=== PATIENT | male | born 1965 | race Caucasian/White ===

== ENCOUNTER 2024-02-14 08:53 | Inpatient (IN) | payer BC, SELFPAY ==
[2024-02-14] VITALS (18 sets, daily range): BP systolic 99–173; BP diastolic 67–114; BMI 27.8; BMI 27.5
--- NOTE | 2024-02-14 06:57 | ED.GENMED ---
History of Present Illness
General
Chief Complaint: Chest Pain
Source: patient
Time Seen by Provider: 02/14/24 06:44
History of Present Illness
History of Present Illness:
58-year-old male presents to the emergency room complaining of chest pain. Patient states that he was awoken from sleep around 5 AM with pressure in his chest. He describes as a dull type of discomfort that almost felt like he needed to belch.
However it did not go away. The pain does not radiate. He denies shortness of breath or diaphoresis. Patient does have a history of type 2 diabetes. He has not taken any medication for this for the past 2 years. Denies smoking history.
Past History
Past History
ED Past Medical History: None
ED Past Surgical History: None
Social History
Tobacco: Non-smoker
Alcohol: Occasional
Personal:
Living: with family
Employment: Employed
Phy Exam
Physical Exam
Physical Exam:
General: Awake, Alert, Oriented X3. No acute distress.
Vitals: unremarkable
Head: Atraumatic
Eyes: Pupils equal, EOMI
Throat: Airway intact, no exudates
Neck: Trachea midline
Lungs: Clear and equal b/l
Heart: Regular rate, no murmurs
Abd: Soft, Nontender, No pulsatile mass
Neuro: Nonfocal
Skin: Warm, dry, no rash
Extremities: pulses equal b/l, no edema
Scores
Heart Score for Chest Pain Patients
STEMI patient?: Yes
Course
Orders/Labs/Results
Orders:
Orders
02/14/24 06:36
EKG [Electrocardiogram (*1)] Stat
Reason for Study: Chest Pain
02/14/24 06:37
EKG- Treatment ONCE
02/14/24 06:49
Cardiac Monitoring- Treatment ONCE
02/14/24 06:52
Basic Metabolic Panel Urgent
Complete Blood Count/With Diff Urgent
Troponin I Urgent
02/14/24 07:24
Midazolam HCl [Versed] 2 mg .ROUTE .STK-MED ONE
Verapamil Injectable [Isoptin/Verapamil Injection] 5 mg .ROUTE .STK-MED ONE
02/14/24 07:25
Fentanyl Citrate/Pf [Sublimaze] 100 mcg .ROUTE .STK-MED ONE
Heparin 10,000 units .ROUTE .STK-MED ONE
Heparin 1000 Units/500 ml [Heparin] 1,000 units in 500 ml .ROUTE .STK-MED
Heparin Sodium,Porcine/Ns/Pf [Heparin 2000 Units/1000 ml] 2,000 unit in 1,000 ml .ROUTE .STK-MED
Lidocaine HCl/Pf [Xylocaine-Mpf 1% Vial] 100 mg .ROUTE .STK-MED ONE
02/14/24 07:26
Nitroglycerin [Tridil] 1,500 mcg .ROUTE .STK-MED ONE
02/14/24 07:31
Heparin 1000 Units/500 ml [Heparin] 1,000 units in 500 ml .ROUTE .STK-MED
02/14/24 08:21
Aspirin Chewable [Low Strength Aspirin] 324 mg .ROUTE .STK-MED ONE
Ticagrelor [Brilinta] 180 mg .ROUTE .STK-MED ONE
02/14/24 08:22
Heparin 5,000 units .ROUTE .STK-MED ONE
02/14/24 08:32
Admit Patient As Directed
Co-Sign Provider:
Level of Care: Inpatient admission
Assign to:: IVU
Physician / Group: Nahum/DILIP
Diagnosis: Inferior STEMI
Patient Condition: Fair
Reason for Hospitalization: Inferior STEMI
Expected length of stay greater than two midnights?: Yes
ELOS- Estimated Length of Stay in days: 4
I certify the patient meets the requirements for IP care: Yes
Electrocardiogram (*1) Urgent
Reason for Study: Other
Other Reason for Exam: s/p intervention
Code Status As Directed
Resuscitation Status: Full Code
CARDIAC REHAB CONSULT Routine
Co-Sign Provider:
Type of Cardiac Rehab Referral: Outpatient
Diagnosis: STEMI
Date of Diagnosis/Surgery: 02/14/2024
Referring Provider: Yunier Sidhu
Acetaminophen [Tylenol] 650 mg PO Q4HPRN PRN
Fentanyl Citrate/Pf [Sublimaze] 25 mcg IV [id number] PRN
Midazolam HCl [Versed] 1 mg IV Q5MPRN PRN
Nitroglycerin Sublingual [Nitrostat (Sublingual)] 0.4 mg SL [id number] PRN
Oxycodone/Acetaminophen [Percocet 5/325] 1 tablet PO Q4HPRN PRN
Activity As Directed
Activity Level: Out of Bed- Chair
Comment: bed/chair rest for 2 hours then out of bed ad dena
Heating Engineer Procedure As Directed
Cardiac Cath Procedure: percutaneous coronary intervention
Intake/ Output As Directed
Frequency: Per unit guidelines
Notify MD As Directed
Notify physician if: immediately for chest pain or bleeding from access site(s)
Radial Artery Hemostasis Method As Directed
Instructions:: 3 mL out at 2 hour posts placement of band
3 mL out at 2 1/2 hours post placement of band
3 mL out at 3 hours post placement of band
Off at 3 1/2 hours post placement of band
If any oozing or hemotoma occurs:: re-inflate band and call provider
Site Checks As Directed
Check access site for bleeding/hematoma: Yes
Comment: on arrival, Q15min x4, Q30min x2, Q1 hr x2, Q2 hr x2, Q4 hr or per
protocol
Vascular Checks As Directed
Location: distal to access site - pulse check
Frequency: Other
Comment: on arrival, Q15min x4, Q30min x2, Q1 hr x2, Q2 hr x2, Q4 hr or per protocol
Venous Foot Pumps As Directed
Location: Bilateral feet
Vital Signs As Directed
Frequency: Other
Additional Instructions:: on arrival, Q15min x4, Q30min x2, Q1 hr x2, Q2 hr x2, then Q4 hr or per unit
protocol
PRN Pain Medication Management As Directed
May give lesser potent ordered pain med per pt: Yes
preference::
Protocol:: Medication orders for pain may be administered in a
manner that supports deferring to patient preference
when the pt is:
- Requesting an ordered lesser potent pain medication.
Least to most potent pain medications are defined
as: acetaminophen < NSAID < tramadol < opioids
(morphine, oxycodone, hydromorphone).
- Requesting a lesser dose of the same medication IF
ORDERED.
- Requesting a less intrusive route of administration
if both routes are prescribed by the provider (PO <
IV).
02/14/24 08:33
DX Deep Vein Thrombosis Video Routine
02/14/24 08:45
0.9% Sodium Chloride 1000 ml [Nss] 1,000 ml IV PER PROTOCOL
Infusion rate in mL/kg/hr:: 1.5
Infusion rate in mL/hr:: 168
Duration of infusion (hours):: 5
02/14/24 09:00
Metoprolol Xl [Toprol Xl] 12.5 mg PO DAILY
02/14/24 09:01
Glycohemoglobin (HgbA1c) Routine
Troponin I Q6H
02/14/24 Lunch
Cholesterol Lowering
At Your Request: Full Participation
Cholesterol Lowering: Sodium, 2 Gram
02/14/24 14:45
Troponin I Q6H
02/14/24 18:00
Atorvastatin [Lipitor] 40 mg PO QPM
Enoxaparin Sodium [Lovenox] 40 mg SC QPM
02/14/24 20:00
Ticagrelor [Brilinta] 90 mg PO BID
02/14/24 20:45
Troponin I Q6H
02/15/24 06:00
Echo 2D MMode Color/Doppler IN AM
Reason for Study: Inferior STEMI
Electrocardiogram (*1) IN AM
Reason for Study: Other
Other Reason for Exam: s/p intervention
Basic Metabolic Panel IN AM
Complete Blood Count/No Diff IN AM
02/15/24 08:00
Aspirin Chewable [Low Strength Aspirin] 81 mg PO DAILY
02/16/24 06:00
Basic Metabolic Panel IN AM
Complete Blood Count/No Diff IN AM
02/17/24 06:00
Basic Metabolic Panel IN AM
Complete Blood Count/No Diff IN AM
02/18/24 06:00
Basic Metabolic Panel IN AM
Complete Blood Count/No Diff IN AM
Abnormal Lab Results
02/14/24 02/14/24
06:52 07:53
MPV 10.6 H fL
(7.4-10.4)
Absolute Monos (auto) 0.9 H 10^3/uL
(0.1-0.6)
Monocytes % 11.2 H %
(1.7-9.3)
Potassium 5.2 H mmol/L
(3.5-5.1)
Glucose 346 H mg/dl
(70-99)
Calcium 10.4 H mg/dl
(8.4-10.2)
POC ACT Low Range 265 H Seconds
(116-155)
02/14/24 06:52
02/14/24 06:52
Vital Signs
Initial and Last Documented VS:
Initial Vital Signs
Temp Pulse Resp BP Pulse Ox
97.8 F 85 16 133/97 98
02/14/24 06:37 02/14/24 06:37 02/14/24 06:37 02/14/24 06:37 02/14/24 06:37
Last Documented Vital Signs
Temp Pulse Resp BP Pulse Ox
98.0 F 92 18 127/98 100
02/14/24 12:34 02/14/24 12:34 02/14/24 12:34 02/14/24 10:30 02/14/24 12:34
MDM/Problems Addressed
Differential Diagnosis Includes:
STEMI, NSTEMI, gastritis
MDM/Problems Addressed:
Patient had a EKG in triage. This demonstrates ST elevation in leads II, III and aVF with reciprocal changes. He also has a right bundle branch block. STEMI alert called. Patient given 4 baby aspirin, 180 Brilinta and a 5000 unit bolus of
heparin. Dr. Carmona will take the patient to the Heating Engineer.
Chronic conditions affecting care: DM
*Pulse Oximetry
Patient hypoxic: no
*EKG
Interpreted by ED Provider?: Yes
Interpretation: normal
Heart Rate: 80
Rate: normal
Rhythm: sinus
QRS Pattern: right bundle branch block
Ischemia: ST elevation (II, III, avf elevatin with reciprocal changes)
*Gerentological Physiotherapist Interpretation
Rate: normal
Interpretation: normal
Rhythm: sinus
*Critical Care Note
Total Time (30-74mins, 75-104mins- exclusive of procedures): 35 min
comment:
Critical care statement: A total of 35 minutes of critical care time was provided for this patient. This includes management of unstable vital signs, evaluation of the patient at bedside, reviewing the patient's pertinent medical records, discussion
with consultants, review of old EKGs and review of pertinent medical records. This time with separate from time utilized to perform the aforementioned documented procedures
ED Attending Note
-
Portions of this chart may have been created with voice recognition software.� Occasional wrong word or��sound alike� substitutions may have occurred due to the inherent limitations of voice recognition software.
Discharge Plan
Departure
Patient Disposition: Admit
Date of Disposition: 02/14/24
Time of Disposition: 07:01
Admit to: laborer electroplating
Presentation/result/management discussed w/ accepting MD/DO: Dr. Carmona
Condition: Serious
Discharge Problem:
Acute [place], inferior wall
Interventions
Interventions:
*Risk Screen - Suicide Last Done: 02/14/24 07:08
*General Assessment Last Done: 02/14/24 07:08
*Neglect/Abuse Screening Last Done: 02/14/24 07:08
ED- Fall Risk Assessment Last Done: 02/14/24 07:08
*ED COVID-19 Vaccine History Last Done: 02/14/24 07:08
*Nursing Disposition Last Done: 02/14/24 07:38
ED- Cardiac Assessment Last Done: 02/14/24 07:08
Discharge Date and Time
Discharge Date/Time: 02/14/24 07:29
[2024-02-14 07:00] LABS: % Basophils 0.7 % (0-2); % Immature Granulocytes 0.4 % (0-0.5); % Lymphocytes 39.4 % (20.5-51.1); % Monocytes 11.2 % (1.7-9.3); % Neutrophils 48.3 % (42.2-75.2); Absolute Basophils 0.1 10^3/uL (0-0.2); Absolute Lymphocytes 3.2 10^3/uL (1.2-3.4); Absolute Monocytes 0.9 10^3/uL (0.1-0.6); Absolute Neutrophils 3.9 10^3/uL (1.4-6.5); Hematocrit 47.6 % (39.0-52.0); Hemoglobin 16.7 g/dL (13.0-18.0); Mean Corp Hgb Conc. 35.1 g/dL (33.0-37.0); Mean Corpuscular Volume 85.6 fL (80.0-94.0); Mean Platelet Volume 10.6 fL (7.4-10.4); Nucleated Red Blood Cells % 0 % (-); Platelet Count 223 10^3/uL (130-400); Red Blood Cell Count 5.56 10^6/uL (4.70-6.10); Red Cell Dist. Width 12.3 % (11.5-14.5)
[2024-02-14 07:10] LABS: Blood Urea Nitrogen 18 mg/dl (9-20); Calcium 10.4 mg/dl (8.4-10.2); Carbon Dioxide 27 mmol/L (22-30); Chloride 101 mmol/L (98-107); Estimated Creatinine Clearance 105 ml/min; Glucose 346 mg/dl (70-99); Potassium 5.2 mmol/L (3.5-5.1); Sodium 141 mmol/L (135-145); eGFR > 60.00
[2024-02-14 07:22] LABS: Troponin I < 0.012 ng/ml
--- NOTE | 2024-02-14 07:27 | HPS.HSE ---
Family Physician
-
Family Physician: * NONE
Chief Complaint
-
Chest Pain.
History of Present Illness
58 y/o male with HLD and DM2 (previously on metformin) presenting with 1 hour of substernal left sided chest pain. Pain began when he rolled over in bed this morning. Initially he believed it was GERD or a muscle strain. He lissett from his bed and
ambulated for several minutes. He does admit to mild nausea but denies any vomiting, diaphoresis, palpitations, syncope or presyncope. As the pain was not abating, he decided to report to the emergency room. EKG showed and inferior STEMI and the
agriculture laboratory technician was activated. The patient admitted to limited medical contact as he stopped going to a primary care doctor when his previous PCP retired (ergo he stopped taking metformin).
Medical History
Past Medical History
Past Medical History: Reports Hypercholesterolemia and NIDDM
Past Surgical History: Reports None
Social History
Tobacco: Non-smoker
Alcohol: None
Drug: None
Personal:
Living: With Family
Family History
Family History: Not pertinent
Allergies / Home Medications
Allergies reflects when Allergies were last updated in [facility].
Home Medications with original date entered in [facility]
Allergy/Medication List:
No current medications.
NKDA.
Review of Systems
-
A 12 point ROS was completed and negative except as noted: Yes
Constitutional: Reports No Symptoms
EENT: Reports No Symptoms
Respiratory: Reports No Symptoms
Cardiac: Reports Chest Pain
Abdomen/GI: Reports Nausea
: Reports No Symptoms
Musculoskeletal: Reports No Symptoms
Neurological: Reports No Symptoms
Physical Exam
Vital Signs
Vital Signs
Temp Pulse Resp BP Pulse Ox
36.6 C 99 16 129/99 98
02/14/24 06:37 02/14/24 07:00 02/14/24 07:00 02/14/24 07:00 02/14/24 07:00
Physical Exam
General: Well Nourished, No Apparent Distress, Comfortable, Conversant, Good Appetite and Obese
HEENT: NormoCephalic, Anicteric, Moist mucous membranes, Atraumatic, PERRLA, [place] Conjunctivae, No Ptosis, Nose Appears Normal and Ears Appear Normal
Respiratory: Clear and Non Labored Respirations
Cardiac: S1/S2 and Regular Rhythm
Breast: Deferred by me
GI: Soft, Non Tender, Non Distended and Normal Bowel Sounds
Rectal: Deferred by Provider
Genito-urinary: Deferred by me
Musculoskeletal: No Clubbing, No Cyanosis and No Edema
Skin: Warm and Dry
Neuro: AO x 3
Hematologic/Lymphatic: No Lymphadenopathy
Psych: Calm and Intact Judgment/Insight
Laboratory Results
-
02/14/24 06:52
02/14/24 06:52
Laboratory Results
Troponin I < 0.012 ng/ml 02/14/24 06:52
Data Reviewed
-
Medical Tests (Nuc Med, Echo, EKG etc): Image Personally Visualized and interpreted and Report Reviewed by me
Lab Data: Labs Reviewed by me
Impression/Plan
-
IMPRESSION: 58 y/o male with HLD and NIDDM presenting with inferior STEMI.
PLAN:
#STEMI
-Acute.
-Immediate coronary angiography with ad hoc PCI.
-Risks/benefits discussed with patient/family.
-Consent is signed and on the chart.
-Further instructions to follow.
#HLD
-Chronic.
-Fasting lipid panel.
-High dose, high potency statin.
-Goal LDL < 55.
#NIDDM
-Chronic.
-Check HbA1c.
-Hold metformin in light of contrast exposure.
[2024-02-14 08:00] LABS: ACT-LR - POC 265 Seconds (116-155)
--- NOTE | 2024-02-14 08:37 | ITS.CL.ANGIO ---
Fugitive Investigator - Angioplasty
Angioplasty
Procedure Report:
CARDIAC CATHETERIZATION REPORT
Date of Procedure: 02/14/2024
Referring: William Thomason D.O.
INDICATION: Inferior ST elevation myocardial infarction.
PROCEDURE:
1. Left heart catheterization.
2. Coronary angiography.
3. Status post successful PCI to the distal RCA.
4. Status post accessible PCI to the mid RCA.
ACCESS:
6 [place] right radial artery.
CATHETERS:
1. 5 [place] JR4.
2. 5 [place] JL 3.5.
3. 6 [place] AL-1 guiding catheter.
HEMODYNAMIC DATA
Weight (kg): 111.8
AO (s/d/x, mmHg): 112/82/97
LV (s/x mmHg): 114/10
LEFT VENTRICULOGRAPHY: Not performed.
CORONARY ANGIOGRAPHY
Dominance: Right.
Left Main: Normal size, trifurcating vessel. There is no coronary artery disease.
LAD: Normal size vessel giving rise to 1 significant diagonal. There is a 30% lesion in the mid vessel. There is an 80-90% lesion in the ostium/proximal margin of the diagonal. The distal LAD is diffusely diseased.
Ramus: Medium size vessel supplying the anterolateral wall. There is an 80% lesion in the proximal third of the vessel.
Circumflex: Normal size, nondominant vessel giving rise to 3 obtuse marginals. There is a 60% lesion in the proximal circumflex. There is a 50% lesion in the mid circumflex after the origin of OM1 and leading into OM 2. OM1 has an upward
angulation with tandem 90% lesions in the proximal third of the vessel but is diffusely diseased. OM 2 is a small to medium size vessel with a 70% lesion in its ostium and a 90% lesion in its midsection.
RCA: Large size, severely tortuous, dominant vessel. The vessel is acutely occluded in its distal midportion, just at the crux. There is an additional 90% lesion in the distal RCA leading into the RPDA.
INTERVENTION(S)
1. Successful PCI of the 90% distal RCA lesion into the RPDA (Medtronic [place] 3.5 x 38 KELLY, postdilated with a 3.5 NC balloon) with reduction in stenosis to 0%, restoring TASHA-3 flow in the RPDA as well as into the right posterolateral
branch.
2. Successful PCI of the 100% distal mid RCA lesion (Medtronic [place] 4.0 x 18 KELLY, postdilated with a 4.0 NC balloon) with reduction in stenosis to 0%, restoring TASHA-3 flow.
Narrative:
The decision was made to proceed with percutaneous coronary intervention. The diagnostic catheter was removed over a wire and a 6Fr AL-1 guiding catheter was advanced to the aortic root and seated in the right coronary artery. Additional heparin was
given and a Power Turn Flex wire was advanced into the distal RCA. The path of the wire indicated that there was significant vessel tortuosity compounded by suboptimal guide engagement. The decision was made to proceed with guide extension from
the beginning of the case. A 2.0 x 15 semicompliant balloon was advanced into the right coronary artery. The 6 [place] guide liner was then advanced over the balloon to allow for tracking while limiting any potential damage to the vessel. The
distal mid culprit RCA lesion was predilated with a 2.0 x 15 semi-compliant balloon to 12 gilberto. The semi-compliant balloon was removed. Post angioplasty angiography revealed a more distal RCA lesion in the distal RCA leading into the RPDA. The 2.0
x 15 semicompliant balloon was readvanced and the distal RCA lesion was dilated to 12 gilberto. At this time, we took the opportunity to advance the GuideLiner beyond the mid lesion and into the distal RCA for support. The semicompliant balloon was
withdrawn and a Medtronic [place] 3.5 x 38 drug-eluting stent was advanced. The stent was deployed at 12 atmospheres and the stent balloon was withdrawn. We then pulled the GuideLiner back, proximal to the distal mid culprit lesion. A 4.0 x
18 drug-eluting stent was advanced into the distal mid lesion. The stent was dilated to 12 gilberto and the stent balloon was withdrawn. A 3.5 x 20 noncompliant balloon was advanced into the distal RCA stent stent and the stent was postdilated to 14
atmospheres throughout. The 3.5 x 20 NC balloon was withdrawn and a 4.0 x 15 NC balloon was advanced into the distal mid RCA stent. Meticulous care was taken while positioning the postdilation balloon. The distal mid stent was postdilated to 16
gilberto. The noncompliant balloon was withdrawn. Angiography was performed in orthogonal views, confirming good stent expansion and an excellent angiographic result. The coronary wire was withdrawn and the guide was disengaged from the artery. The
catheter was removed over a standard J-wire.
Closure Device: Vascular band.
Radiation (mGy): 1425.42
DAP (cm2.Gy): 110.84
Fluoroscopy time (minutes): 11.6
Sedation time (minutes): 39
CONCLUSIONS
1. Right dominant circulation with a 30% lesion in the mid LAD, a diffusely diseased distal LAD, and 80-90% lesion in the ostium/proximal margin of D1, and 80% lesion in the proximal third of the ramus, a 60% lesion in the proximal circumflex, a
50% lesion in the mid circumflex after the origin of OM1 and leading into OM 2, a 90% lesion and a diffusely diseased OM1, a 70% lesion in the ostium of OM 2, a 90% lesion in the midportion of OM 2, and 90% lesion in the distal RCA leading into the
RPDA status post successful PCI (Medtronic [place] 3.5 x 38 KELLY, postdilated with a 3.5 NC balloon) and a culprit, 100% lesion in the distal mid RCA at the crux, status post successful PCI (Medtronic [place] 4.0 x 18 KELLY, postdilated
with a 4.0 NC balloon) with reduction in both RCA stenosis to 0%, restoring TASHA-3 flow in the right coronary artery.
2. Normal filling pressures (LVEDP = 10 mmHg at 111.8 kg).
RECOMMENDATIONS:
1. Expectant management after cardiac catheterization via right right approach.
2. Limited weight bearing on the right for one week.
3. Dual antiplatelet therapy with aspirin and ticagrelor for at least 12 months, followed by aspirin indefinitely.
4. Guideline directed medical therapy as hemodynamics will tolerate.
5. Aggressive risk factor modification including high-dose, high potency statin. He may benefit from GLP-1 analogs given his [id number] diabetes mellitus.
6. Echocardiogram ordered and pending.
7. Plan for staged PCI of the ramus/circumflex early next week.
8. Referral to cardiac rehab.
Copy to: Yunier Sidhu D.O., William Thomason D.O.
Yunier Sidhu DO, FACC, FACP
--- NOTE | 2024-02-14 09:30 | PTCARENOTE ---
Pt arrived from clinical laboratory technologist to 2260 at 0900. Pt not requiring CVICU level of care, IVU unable to accept pt at this time. Pt is awake, alert, and oriented. No complaints of pain. Pt remains SR with HR 80's. BP 118/82 MAP 92. Pulse oximetry 98% on room
air. Right radial site with external closure device in place. Pulses palpable, neurovascular assessment WNL. Post cath EKG completed. Pt on no gtts at this time.
[2024-02-14 09:42] LABS: Troponin I 0.562 ng/ml
[2024-02-14] MEDS: TOPROL XL 12.5 MG PO (10:12)
[2024-02-14 11:53] LABS: Glycohemoglobin (HgbA1c) 10.7 % (4.0-5.6)
--- NOTE | 2024-02-14 12:40 | PTCARENOTE ---
Radial band now off, site CDI. Pulses palpable. Neurovascular assessment WNL. Pt OOB in chair. Ambulated to bathroom without issue. Pt remains SR with HR 80's. BP 110/79 MAP 87. Pulse oximetry 100% on room air.
--- NOTE | 2024-02-14 16:32 | PTCARENOTE ---
Pt with no changes in assessment. Remains SR with BBB. HR 80's. BP 115/76 MAP 86. Pulse oximetry 100% on room air. No complaints of pain. Right radial site remains intact.
[2024-02-14 17:22] LABS: Glucose - Point of Care 238 mg/dl (70-99)
[2024-02-14] MEDS: LOVENOX 40 MG SC (18:22)
[2024-02-14] MEDS: LIPITOR 40 MG PO (18:22)
--- NOTE | 2024-02-14 18:42 | PTCARENOTE ---
Pt transferred from CVICU. He denies any discomfort, up independently. Radial site with dry and intact dressing , no sign of bleeding or hematoma. Troponin still trending, now at 69, notified. Pt states understanding that his diabetes
needs to be treated and controlled, Dr. Sidhu aware of A1C and will order treatment. Telemetry shows sinus rhythm with RBBB.
[2024-02-14] MEDS: BRILINTA 90 MG PO (20:05)
--- NOTE | 2024-02-14 23:34 | PTCARENOTE ---
Pt received start of shift HR SR w/ BBB. R radial site CDI, soft, no hematoma. Reinforced CAD education w/ pt and importance of lowering A1C. Pt states understanding. Pt denies any CP. Informed to notify RN if any changes, call bateman within reach.
~ 2232 pt w/ 15 beat run of what appears to be VT. BP 114/84. Pt described feeling a 'fluttering in [his] chest'. Pt denies any CP, lightheadedness, or dizziness
[2024-02-15 04:13] VITALS: BP 103/78
[2024-02-15 05:04] LABS: Hematocrit 42.1 % (39.0-52.0); Hemoglobin 15.1 g/dL (13.0-18.0); Mean Corp Hgb Conc. 35.9 g/dL (33.0-37.0); Mean Corpuscular Hgb 30.9 pg (27.0-31.0); Mean Corpuscular Volume 86.1 fL (80.0-94.0); Mean Platelet Volume 11.5 fL (7.4-10.4); Platelet Count 182 10^3/uL (130-400); Red Blood Cell Count 4.89 10^6/uL (4.70-6.10); Red Cell Dist. Width 12.1 % (11.5-14.5); White Blood Cell Count 9.5 10^3/uL (4.8-10.8)
[2024-02-15 05:27] LABS: Blood Urea Nitrogen 15 mg/dl (9-20); Calcium 9.4 mg/dl (8.4-10.2); Carbon Dioxide 22 mmol/L (22-30); Chloride 101 mmol/L (98-107); Estimated Creatinine Clearance > 125 ml/min; Glucose 209 mg/dl (70-99); Potassium 4.2 mmol/L (3.5-5.1); Sodium 135 mmol/L (135-145); eGFR > 60.00
[2024-02-15 07:36] LABS: Glucose - Point of Care 195 mg/dl (70-99)
[2024-02-15 07:37] VITALS: BP 100/77
[2024-02-15] MEDS: LOW STRENGTH ASPIRIN 81 MG PO (07:47)
[2024-02-15] MEDS: TOPROL XL 12.5 MG PO (07:47)
[2024-02-15] MEDS: BRILINTA 90 MG PO ×2 (07:48→19:09)
--- NOTE | 2024-02-15 08:34 | W.PN.CD ---
Today's Communication / Plan
-
-Diabetes/glucose control
-Holding metformin
-Hypertensive Lipitor on board
-Possible PCI on Friday
Impression / Plan
-
58 y/o male with HLD and NIDDM presenting with inferior STEMI.
PLAN:
#STEMI
-s/p LHC and PCI 02/14/24 - Right dominant circulation with a 30% lesion in the mid LAD, a diffusely diseased distal LAD, and 80-90% lesion in the ostium/proximal margin of D1, and 80% lesion in the proximal third of the ramus, a 60% lesion in the
proximal circumflex, a 50% lesion in the mid circumflex after the origin of OM1 and leading into OM 2, a 90% lesion and a diffusely diseased OM1, a 70% lesion in the ostium of OM 2, a 90% lesion in the midportion of OM 2, and 90% lesion in the
distal RCA leading into the RPDA
- status post successful PCI (Medtronic [place] 3.5 x 38 KELLY, postdilated with a 3.5 NC balloon) and a culprit, 100% lesion in the distal mid RCA at the crux,
- status post successful PCI (Medtronic [place] 4.0 x 18 KELLY, postdilated with a 4.0 NC balloon) with reduction in both RCA stenosis to 0%, restoring TASHA-3 flow in the right coronary artery.
Normal filling pressures (LVEDP = 10 mmHg at 111.8 kg).
Plan for staged PCI of the ramus/circumflex early next week.
Aspirin and ticagrelor for at least 12 months, followed by aspirin indefinitely.
Peaked Trop at 69.
Lipitor 40 mg Qhs
Metoprolol 12.5 mg QD
# Nonsustained ventricular tachycardia
-Episodes of NSVT noted.
-Episodes were brief and nonsustained.
-Possible related to revascularization injury
-Plan for complete revascularization planned next week.
-Continue metoprolol 12.5 mg once a day and if tolerated can increase to twice a day
-Continue telemetry
#HLD
-Chronic.
-Fasting lipid panel.
-High dose, high potency statin.
-Goal LDL < 55.
#NIDDM
-Chronic.
-HbA1c - 10.7
-Hold metformin in light of contrast exposure. Plan for contrast next week with staged PCI.
-Insulin SSI at this time
Physical Exam
Vital Signs/Labs
Vital Signs
Temp Pulse Resp BP Pulse Ox
98.5 F 86 18 100/77 95
02/15/24 07:40 02/15/24 08:25 02/15/24 07:40 02/15/24 07:37 02/15/24 08:24
02/14/24 02/15/24 02/16/24
06:59 06:59 06:59
Actual Weight 110.6 kg
02/15/24 04:22
02/15/24 04:22
LAB Results
02/14/24 02/14/24 02/14/24
06:52 09:01 16:31
Troponin I < 0.012 0.562 H* D 69.000 H* D
02/14/24
22:24
Troponin I 53.200 H*
Physical Exam
Constitutional: No acute distress and Comfortable
EENT: Anicteric and Moist mucous membranes
Cardiovascular: Rhythm & rate is regular, Pedal edema is absent and JVD pressure is normal
Respiratory: Respiratory effort normal, Lungs clear to auscul., Wheeze Absent and Crackles Absent
GI: Soft, Distention absent, Non tender and Normal bowel sounds
Neuro/Psych: Alert, Oriented and AO x 3
Other: Cath Site
Data Reviewed
-
Date of Service: February 15, 2024
Medical Decision Making: Reviewed Test Results, Independent Historian Assessment, Test Interpretation and Review of Case with other Provider
EKG: Tracing Personally Visualized and interpreted
Echo: Report Reviewed by me
Medical Tests (PFT, Pathology etc): Discussed with Physician and Discussed with Patient
Labs: Labs Reviewed by me
Old Records: Reviewed
[2024-02-15 11:21] VITALS: BP 114/83
[2024-02-15 11:58] LABS: Glucose - Point of Care 236 mg/dl (70-99)
[2024-02-15] MEDS: NOVOLOG FLEXPEN-MODERATE RESISTANCE 3 UNITS SC (13:00)
[2024-02-15 15:08] VITALS: BP 118/81
[2024-02-15 17:09] LABS: Glucose - Point of Care 197 mg/dl (70-99)
[2024-02-15] MEDS: NOVOLOG FLEXPEN-MODERATE RESISTANCE 1 UNITS SC (18:14)
[2024-02-15] MEDS: LIPITOR 40 MG PO (18:15)
[2024-02-15] MEDS: LOVENOX 40 MG SC (18:15)
--- NOTE | 2024-02-15 19:07 | PTCARENOTE ---
Pt in sinus rhythm with RBBB with a couple of episodes of NSVT @07:00 which he can feel, none since then. He denies any chest discomfort. Pt and is learning about CAD. Plan for PCI on 02/15.
[2024-02-15 19:09] VITALS: BP 113/83
[2024-02-15 21:53] LABS: Glucose - Point of Care 183 mg/dl (70-99)
[2024-02-15 22:13] VITALS: BP 102/79
[2024-02-16] VITALS (11 sets, daily range): BP systolic 92–127; BP diastolic 74–112; BMI 26.5
--- NOTE | 2024-02-16 00:34 | PTCARENOTE ---
Pt received start of shift. HR SR w/ BBB. Pt understands plan of care. Reinforced purpose of medications w/ pt. Pt denies any CP. Call bateman within reach.
[2024-02-16 05:36] LABS: Hematocrit 41.9 % (39.0-52.0); Hemoglobin 14.9 g/dL (13.0-18.0); Mean Corp Hgb Conc. 35.6 g/dL (33.0-37.0); Mean Corpuscular Hgb 29.6 pg (27.0-31.0); Mean Corpuscular Volume 83.3 fL (80.0-94.0); Platelet Count 194 10^3/uL (130-400); Red Blood Cell Count 5.03 10^6/uL (4.70-6.10); Red Cell Dist. Width 12.3 % (11.5-14.5); White Blood Cell Count 7.7 10^3/uL (4.8-10.8)
[2024-02-16 05:58] LABS: Blood Urea Nitrogen 17 mg/dl (9-20); Calcium 9.7 mg/dl (8.4-10.2); Carbon Dioxide 25 mmol/L (22-30); Chloride 101 mmol/L (98-107); Estimated Creatinine Clearance 117 ml/min; Glucose 188 mg/dl (70-99); Potassium 4.3 mmol/L (3.5-5.1); Sodium 137 mmol/L (135-145); eGFR > 60.00
[2024-02-16 07:30] LABS: Glucose - Point of Care 189 mg/dl (70-99)
[2024-02-16] MEDS: TOPROL XL 12.5 MG PO (07:32)
[2024-02-16] MEDS: LOW STRENGTH ASPIRIN 81 MG PO (07:32)
[2024-02-16] MEDS: BRILINTA 90 MG PO ×2 (07:32→20:25)
[2024-02-16 07:54] LABS: ACT-LR - POC > 397 Seconds (116-155)
--- NOTE | 2024-02-16 07:55 | PTCARENOTE ---
Assumed care at 0700. Patient awake and alert. NSR BBB, denies pain. Right radial dressing CDI, +2 radial pulse. Plan of care reviewed, NPO for cath today
[2024-02-16] MEDS: NOVOLOG FLEXPEN-MODERATE RESISTANCE SC (08:09)
--- NOTE | 2024-02-16 09:33 | W.PN.CD ---
Today's Communication / Plan
-
Staged PCI today.
Hold metformin.
TTE.
Start detemir insulin 20 units QHS, aspart insulin 7 units QAC.
GLP-1 analog as an outpatient.
Impression / Plan
-
Impression/Plan: 58 y/o male with HLD and NIDDM presenting with inferior STEMI.
#STEMI
-S/P PCI to the 90% dRCA lesion (Medtronic [place] 3.5 x 38 KELLY) and 100% mRCA (Medtronic [place] 4.0 x 18 KELLY) with reduction in stenoses to 0%, restoring TASHA III flow.
-Troponin peaked at 69.
-Normal filling pressures (LVEDP = 10 mmHg at 111.8 kg).
-Brief NSVT post revascularization, none in the last 36 hours.
-Started on metoprolol succinate 12.5 mg daily.
-DAPT with ASA 81 mg and ticagrelor 90 mg BID x 12 months, then ASA 81 mg daily indefinitely.
-Continue atorvastatin 40 mg daily.
#CAD
-Residual CAD in the LCx/RI/D1.
-Plan for staged PCI today.
#HLD
-Chronic, stable.
-Lipid panel pending.
-High dose, high potency statin.
-Goal LDL < 55.
#NIDDM
-Chronic, untreated.
-HbA1c = 10.7%
-Hold metformin in light of contrast exposure. Plan for contrast next week with staged PCI.
-Glucose uncontrolled (189 <-- 183 <-- 197 <-- 236).
-Continue SSI.
-Weight = 106 kg. Start detemir insulin 20 units QHS, aspart inuslin 7 units QAC.
-The patient will benefit from GLP-1 analogs.
Subjective/Interval History:
No acute events.
The patient reports 'I feel great!'.
DATA:
Cardiac Catheterzation/PCI, 02/14/2024:
CONCLUSIONS
1. Right dominant circulation with a 30% lesion in the mid LAD, a diffusely diseased distal LAD, and 80-90% lesion in the ostium/proximal margin of D1, and 80% lesion in the proximal third of the ramus, a 60% lesion in the proximal circumflex, a
50% lesion in the mid circumflex after the origin of OM1 and leading into OM 2, a 90% lesion and a diffusely diseased OM1, a 70% lesion in the ostium of OM 2, a 90% lesion in the midportion of OM 2, and 90% lesion in the distal RCA leading into the
RPDA status post successful PCI (Medtronic [place] 3.5 x 38 KELLY, postdilated with a 3.5 NC balloon) and a culprit, 100% lesion in the distal mid RCA at the crux, status post successful PCI (Medtronic [place] 4.0 x 18 KELLY, postdilated
with a 4.0 NC balloon) with reduction in both RCA stenosis to 0%, restoring TASHA-3 flow in the right coronary artery.
2. Normal filling pressures (LVEDP = 10 mmHg at 111.8 kg).
Physical Exam
Vital Signs/Labs
Vital Signs
Temp Pulse Resp BP Pulse Ox
36.4 C 81 16 107/79 97
02/16/24 06:41 02/16/24 08:05 02/16/24 06:41 02/16/24 06:41 02/16/24 06:41
02/14/24 02/15/24 02/16/24
11:59 11:59 11:59
Actual Weight 110.6 kg 106.6 kg
02/16/24 04:46
02/16/24 04:46
LAB Results
02/14/24 02/14/24 02/14/24
06:52 09:01 16:31
Troponin I < 0.012 0.562 H* D 69.000 H* D
02/14/24
22:24
Troponin I 53.200 H*
Physical Exam
Constitutional: No acute distress and Comfortable
EENT: Anicteric and Moist mucous membranes
Cardiovascular: Rhythm & rate is regular, Pedal edema is absent, JVD pressure is normal, S1S2 is normal and Murmur/rub/gallop absent
Respiratory: Respiratory effort normal, Lungs clear to auscul., Wheeze Absent, Crackles Absent and Rhonchi Absent
GI: Soft, Distention absent, Flat, Non tender and Normal bowel sounds
Neuro/Psych: AO x 3
Other: Cath Site (Right radial access site is C/D/I.)
Data Reviewed
-
Date of Service: February 16, 2024
Medical Decision Making: Reviewed Test Results, Independent Historian Assessment and Test Interpretation
EKG: Tracing Personally Visualized and interpreted and Report Reviewed by me
Echo: Ordered by me
X-Ray/CT/US/MRI/NUC/PET: Image Personally Visualized and interpreted and Report Reviewed by me
Medical Tests (PFT, Pathology etc): Image Personally Visualized and interpreted and Report Reviewed by me
Labs: Labs Reviewed by me
Old Records: Reviewed
--- NOTE | 2024-02-16 11:11 | CM ---
Addendum entered by Tami Alamo 02/16/24 11:36:
Reviewed co-pay with Mrs. Teran, Mr. Teran in the Cardiac Customs Compliance Manager. She is agreeable to co-pay. Placed the $5.00 co-pay card in his red discharge folder. [employer] does not have Brilinta 90 mg po bid in stock. Asked N.P to sent script
today and they can get Brilinta in tomorrow after 5:00 p.m.
Original Note:
Reviewed chart. Met with and Mrs. Teran to review discharge plans. He states prior to admission he resdies with his spuse in a two stor y home with one step to enter. He states he has a full flight of steps to get to bedroom/full bathroom.
He states he has a powder room on the first floor. He states prior to admission he was independent with ambulation and adls. He states he does not have any DME in the home. He states he has a prescription plan and uses [id number].
Telephone call to [employer] ( [phone]) to check on coverage for Brilinta 90 mg po bid. His co-pay would be $315.00 a month. He has a $1500.00 individual deductible. So with the Brilinta coupon his co-pay would be $120 a month until he mets
his deductible- then $5.00 after he mets his deductible. Medical work-up in progress. The discharge plan is to return home with his spouse when medically stable.
--- NOTE | 2024-02-16 11:28 | PTCARENOTE ---
Patient received from the [employer] [employer] awake and alert. NSR 91. Left hand TR band on. Reza to gravity, bleeding around the catheter, yellow urine. Right great toe black ulcer, small black distally to the the right great toe, pulse are week b/l, PVD leg
brown discoloration of his legs, and trace right knee swelling. B/L heels pink, foams applied, elevated on pillows. Sacral foam CDI, protection only.
[2024-02-16 12:28] LABS: ACT-LR - POC 311 Seconds (116-155)
[2024-02-16 12:49] LABS: ACT-LR - POC 260 Seconds (116-155)
[2024-02-16 13:16] LABS: ACT-LR - POC 248 Seconds (116-155)
--- NOTE | 2024-02-16 13:16 | ITS.CL.ANGIO ---
Project Developer - Angioplasty
Angioplasty
Procedure Report:
CARDIAC CATHETERIZATION REPORT
Date of Procedure: 02/16/2024
Referring: Yunier Sidhu D.O.
INDICATION: Staged PCI after inferior ST elevation myocardial infarction.
PROCEDURE:
1. Left-sided coronary angiography.
2. Successful PCI of the ostial/proximal first diagonal.
3. Successful PCI of the ostial/proximal ramus intermedius.
4. Unsuccessful PCI of the third obtuse marginal.
ACCESS:
6 [place]ian right radial artery.
CATHETERS:
1. 6 [place]ian EBU 3.5 guiding catheter.
HEMODYNAMIC DATA
Weight (kg): 106.6
AO (s/d/x, mmHg): 120/85/99
LV (s/x mmHg): Not obtained.
LEFT VENTRICULOGRAPHY: Not performed.
CORONARY ANGIOGRAPHY
Dominance: Right.
Left Main: Normal size, trifurcating vessel. There is no coronary artery disease.
LAD: Normal size vessel giving rise to 1 significant diagonal. There is a 30% lesion in the mid vessel. There is a 90% lesion in the ostium/proximal margin of the diagonal. The distal LAD is diffusely diseased.
Ramus: Medium size vessel supplying the anterolateral wall. There is an 70-80% lesion in the proximal third of the vessel.
Circumflex: Normal size, nondominant vessel giving rise to 2 obtuse marginals. There is a 60% lesion in the proximal circumflex. There is a 50% lesion in the mid circumflex after the origin of OM1 and leading into OM 2. OM1 has an upward
angulation with tandem 90% lesions in the proximal third of the vessel but is diffusely diseased. OM 2 is a small to medium size vessel with tandem 90% lesions in the ostium and midsection.
RCA: Not injected. Known to be a large size, severely tortuous, dominant vessel, s/p PCI to the dRCA and mRCA.
INTERVENTION(S)
1. Successful PCI of the 90% lesion in the ostium/proximal margin of D1 (Medtronic [place] 2.5 x 15 KELLY, postdilated with a 2.75 NC balloon) with reduction in stenosis to 0%, maintaining TASHA-3 flow.
2. Successful PCI of the 80% proximal ramus lesion (Medtronic [place] 2.5 x 18 KELLY) with reduction in stenosis to 0%, maintaining TASHA-3 flow.
3. Unsuccessful PCI of the tandem, 90% lesions of OM 2 due to wire position in a dissection plane.
Narrative:
The decision was made to proceed with percutaneous coronary intervention. A 6Fr EBU 3.5 guiding catheter was advanced to the aortic root and seated in the left main coronary artery. Additional heparin was given and a Power Turn Flex wire was
advanced into the ramus intermedius a BMW wire was advanced into the LAD and then into the large first diagonal. The 90% ostial/proximal D1 lesion was predilated with a 2.0 x 12 semi-compliant balloon to 12 gilberto. The 2.0 x 12 semicompliant balloon
had full expansion, but I was concerned about potential underexpansion given the size of the vessel. A 2.5 x 12 noncompliant balloon was advanced. Unfortunately, at some point in the exchange the catheter became completely disengaged from the
artery and the wires were pulled out. The coronary wires were pulled back into the catheter which was subsequently reengaged in the left main. The BMW wire was readvanced into the first diagonal and the power turn flex wire was advanced into the
LAD. The 2.5 x 12 noncompliant balloon was advanced into the diagonal and the ostium/proximal margin was predilated to 12 gilberto. The noncompliant balloon was removed and a Medtronic Jose [place] 2.5 x 15 drug-eluting stent was advanced. Meticulous
care was taken while positioning the stent, ensuring that the edge of the stent covered the ostium without protruding into the body of the LAD. The stent was deployed at 12 atmospheres. The stent balloon was removed. A 2.75 x 12 noncompliant
balloon was advanced into the stent and the stent was postdilated to 14 gilberto fears in the distal margin and 16 gilberto in the ostial/proximal margin.
We then turned our attention to the ramus intermedius. The power Turn Flex wire and the LAD was discarded as the tip was no longer viable and a new power turn Flex wire was advanced into the distal ramus intermedius. The BMW wire was withdrawn
from the diagonal and advanced into the distal circumflex. The 2.0 x 12 semicompliant balloon was advanced over the power turn flex wire, but would not traverse the origin of the ramus. A 6 [place]ian guide liner was advanced over both wires and
seated in the distal aspect of the left main coronary artery. With this support, we were able to advance the 2.0 x 12 semicompliant balloon. The ostial/proximal margin of the ramus was predilated to 14 gilberto. The semi-compliant balloon was removed
and a Medtronic [place] 2.5 x 18 drug-eluting stent was advanced. Unfortunately, the stent would not cross the ostium of the ramus intermedius, even with GuideLiner support in the left main. The decision was made to withdraw of the BMW wire.
The stent was withdrawn and a 2.5 x 12 semicompliant balloon was advanced into the ramus. The proximal/ostial margin was predilated to 12 gilberto and the guide liner was advanced into the ramus using a sheathing technique. With the GuideLiner beyond
the lesion in question, the semicompliant balloon was withdrawn and the stent was readvanced. Meticulous care was taken while positioning the stent to ensure that the origin of the stent did not protrude back into the left main coronary artery.
The stent was deployed at 12 atmospheres. The stent balloon was removed.
We then turned our attention to the circumflex/OM 2. The power turn flex wire was withdrawn from the ramus intermedius. The wire was directed down into the circumflex artery with relative ease. We then turned the wire to enter the second obtuse
marginal. Unfortunately, the power turn flex wire would not enter the the artery of its own accord. The artery was withdrawn and a quick cross microcatheter was advanced over this wire. We tried to advance the wire with the support of a
microcatheter, but again were unsuccessful. The power turn flex wire was withdrawn and a whisper wire was advanced through the quick cross and into the mid circumflex. The whisper wire was advanced into the second obtuse marginal with some
difficulty and with support from the microcatheter. The quick cross microcatheter was withdrawn and a 1.5 x 10 semicompliant balloon was advanced over the whisper wire. OM 2 was predilated up to 12 gilberto in the proximal and mid sections.
Angiography was performed which showed evidence of dissection plane within the artery. On further evaluation, it was unclear if the wire was in the true lumen or had been in a dissection plane the entire time. The whisper wire was pulled back into
the proximal artery and readvanced. It appeared to track along the course of a sidebranch, though it was unclear if this was truly in the lumen or if it was simply tracking alongside. The wire tip appeared to move at times, but was not reliably
free.
After considering her options, the decision was made to end the procedure at this time to allow the dissected artery to heal. We will trend CK-MBs overnight. The patient was chest pain-free at the end of the procedure.
Angiography was performed in orthogonal views, confirming good stent expansion and an excellent angiographic result. The coronary wire was withdrawn and the guide was disengaged from the artery. The catheter was removed over a standard J-wire.
Closure Device: Vascular band.
Radiation (mGy): 2312.17
DAP (cm2.Gy): 204.36
Fluoroscopy time (minutes): 29.3
Sedation time (minutes): 96
CONCLUSIONS
1. Right dominant circulation status post prior PCI to the mid and distal RCA in the context of ST elevation myocardial infarction, and 90% lesion in the ostium/proximal margin of the first diagonal status post successful PCI (Medtronic Jose
[place] 2.5 x 15 KELLY, postdilated with a 2.75 NC balloon), a 70-80% lesion in the proximal third of the ramus intermedius status post successful PCI (Medtronic [place] 2.5 x 18 KELLY), a 60% lesion in the proximal circumflex, a 50% lesion in
the mid circumflex after the origin of OM1 and leading into OM 2, diffuse disease of OM1 and tandem, 90% lesions in the proximal and mid section of OM 2, status post balloon angioplasty and unsuccessful PCI.
2. Wire dissection of the mid section of OM 2 with preservation of TASHA-3 flow.
RECOMMENDATIONS:
1. Expectant management after cardiac catheterization via right radial approach.
2. Limited weight bearing on the right wrist for one week.
3. Dual antiplatelet therapy with aspirin and ticagrelor for at least 12 months, followed by aspirin indefinitely.
4. Trend CK-MBs in the context of wire dissection.
5. Medical management of remainder of coronary artery disease. Further consideration can be given to PCI of the circumflex territory if the patient has exertional angina or refractory chest pain.
Copy to: Yunier Sidhu D.O.
Yunier Sidhu DO, FACC, FACP
[2024-02-16 13:25] LABS: ACT-LR - POC > 397 Seconds (116-155)
[2024-02-16 13:51] LABS: Glucose - Point of Care 165 mg/dl (70-99)
[2024-02-16] MEDS: NOVOLOG FLEXPEN-MODERATE RESISTANCE 1 UNITS SC ×2 (13:56→18:07)
--- NOTE | 2024-02-16 14:00 | PTCARENOTE ---
Patient returned from the [employer]. Right radial band intact. POX 97%, right radial pulse +2. NSR BBB, VSS, chest pain free.
[2024-02-16 16:13] LABS: Total CK 339 U/L (55-170)
--- NOTE | 2024-02-16 16:32 | PTCARENOTE ---
TR band removed. VSS, denies CP, NSR BBB HR 86
[2024-02-16 16:54] LABS: CKMB 3.1 ng/ml (0.0-2.4)
[2024-02-16 17:50] LABS: Glucose - Point of Care 189 mg/dl (70-99)
[2024-02-16] MEDS: LOVENOX 40 MG SC (18:06)
[2024-02-16] MEDS: LIPITOR 40 MG PO (18:06)
[2024-02-16 19:41] LABS: Hepatitis C Antibody Negative (Negative)
[2024-02-16 21:01] LABS: Total CK 312 U/L (55-170)
[2024-02-16 21:23] LABS: CKMB 5.5 ng/ml (0.0-2.4)
[2024-02-16 22:01] LABS: Glucose - Point of Care 173 mg/dl (70-99)
--- NOTE | 2024-02-17 00:29 | PTCARENOTE ---
Received patient for the night in bed. SR on the monitor. R radial dressing CDI. Plan of care discussed. No complaints from pt at this time. Call bateman within reach.
[2024-02-17 03:44] VITALS: BP 106/80
[2024-02-17 04:23] LABS: Hematocrit 42.4 % (39.0-52.0); Hemoglobin 15.1 g/dL (13.0-18.0); Mean Corp Hgb Conc. 35.6 g/dL (33.0-37.0); Mean Corpuscular Hgb 30.4 pg (27.0-31.0); Mean Corpuscular Volume 85.5 fL (80.0-94.0); Mean Platelet Volume 11.2 fL (7.4-10.4); Platelet Count 180 10^3/uL (130-400); Red Blood Cell Count 4.96 10^6/uL (4.70-6.10); Red Cell Dist. Width 11.9 % (11.5-14.5); White Blood Cell Count 8.4 10^3/uL (4.8-10.8)
[2024-02-17 04:34] LABS: Total CK 349 U/L (55-170)
[2024-02-17 04:46] LABS: Blood Urea Nitrogen 16 mg/dl (9-20); Calcium 9.5 mg/dl (8.4-10.2); Carbon Dioxide 22 mmol/L (22-30); Chloride 102 mmol/L (98-107); Estimated Creatinine Clearance > 125 ml/min; Glucose 184 mg/dl (70-99); Potassium 4.3 mmol/L (3.5-5.1); Sodium 137 mmol/L (135-145); eGFR > 60.00
[2024-02-17 06:49] VITALS: BP 115/84
[2024-02-17 06:53] LABS: Glucose - Point of Care 198 mg/dl (70-99)
[2024-02-17] MEDS: NOVOLOG FLEXPEN 7 UNITS SC ×2 (08:35→18:11)
[2024-02-17] MEDS: TOPROL XL 12.5 MG PO (08:35)
[2024-02-17] MEDS: NOVOLOG FLEXPEN-LOW RESISTANCE 1 UNITS SC ×2 (08:35→13:11)
[2024-02-17] MEDS: LOW STRENGTH ASPIRIN 81 MG PO (08:36)
[2024-02-17] MEDS: BRILINTA 90 MG PO ×2 (08:36→19:59)
[2024-02-17] MEDS: NOVOLOG FLEXPEN-MODERATE RESISTANCE SC ×2 (08:41→08:42)
--- NOTE | 2024-02-17 09:14 | PN.DE.MGMTRT ---
Insulin Management
- -
02/17/2024 Diabetes Management Consult
Patient admitted 02/13 with chest pain. PMH Diabetes taking no medications. A1C on admission 10.7, cr .8, eGFR >60.
Patient is s/p laboratory secretary times 2 for staged interventions. Glucose has ranged 165 to 236.
Lantus 15 units @ hs to start tonight with novolog 7 units AC. Diet was cholesterol lowering, 2 GM sodium, added 2000 calorie consistent carb diet.
Patient is awake alert and oriented out of bed able to discuss diabetes management. participated and asked questions via telephone.
States he had diabetes for approximately 7 years was taking metformin BID but stopped because his provider moved and he never renewed the prescription. Farxiga 10 mg started this AM. Will restart metformin 1000 mg BID tomorrow.
Full instructions on insulin administration, injection sites and action of insulin. Patient able to return demonstrate. To self inject with all meals.
to check with insurance which glucose monitor is preferred, will follow up and provide meter or prescription. Full instructions on hypoglycemia symptoms and treatment reviewed and highlighted in diabetes booklet.
Spoke with patient nurse, patient to self inject all pre meal insulin injections with nursing supervision. Home pen needles provided. Nurse to notify me of pre lunch glucose.
Diabetes History
- -
Type of Diabetes: 2
Pre-Admission Diabetes Regimen
02/17/24
04:01
Creatinine 0.8
Lab Results
Hemoglobin A1c 10.7 % (4.0-5.6) H 02/14/24 09:01
Insulin Pump Settings
IP Diabetes Regimen
02/16/24 02/16/24 02/16/24
13:49 17:49 21:59
Glucose
POC Glucose 165 H 189 H 173 H
02/17/24 02/17/24
04:01 06:51
Glucose 184 H
POC Glucose 198 H
Meal type: Dinner
Amount consumed: 100%
Patient Education
--- NOTE | 2024-02-17 09:18 | PTCARENOTE ---
Patient with no complaints overnight. Denies chest pain, right radial site dry and intact. SR BBB. Medications reviewed, call bateman in reach
--- NOTE | 2024-02-17 09:37 | CM ---
Reviewed chart. Asked to check on co-pays for Jardiance and Farxiga. Telephone call to his insurance to check on co-pays. He has a deductible that has to be met so his first script for Farxiga would be $154.82, but with the Farxiga coupon his
co-pay would be $4.82 a month. Once he meets his deductible his co-pay would be zero. Jardiance co-pay is $260.26 but with the Jardiance coupon his co-pay would be $85.00 a month until his deductible is met then it would be $10.00 a month. He was
agreeable to the co-pay for Farxiga. Placed the Farxiga coupon in his red discharge folder. Prior to admission he resides with his spouse in a two story home with one step to enter. He has a full flight of steps to get to bedroom/full bathroom. He
has a powder room on the fist floor. Prior to admission he was independent with ambulation and adls. He does not have any DME in the home. He has a prescription plan and uses [facility]. Medical work-up in progress. The discharge plan is to
return home with his spouse when medically stable.
--- NOTE | 2024-02-17 09:48 | W.PN.CARDCBS ---
Addendum entered and electronically signed by BIBIANA Ramos 02/20/24 08:00:
ADD: new diagnosis: acute systolic HFrEF, 40%.
Addendum entered and electronically signed by William Wilkins MD 02/17/24 13:40:
Patient seen and examined in collaboration with SUMMER CAMP COUNSELOR; agree with below.
-Continue aspirin/Brilinta.
-Continue low-dose beta-kristopher; further GDMT limited by blood level pressure.
-Will try to add an SGLT2 inhibitor.
-Heart failure education today.
-Diabetes education today.
-Continue monitor worker; likely discharge to home tomorrow.
Original Note:
Today's Communication / Plan
-
#STEMI/CAD/Cardiomyopathy
-02/12- 90% dRCA and 100% mRCA- s/p successful angioplasty/KELLY to both d and m lesions.
-Residual CAD in LCx/Ramus/D1-
-02/15- 90% ostium/prox D1, s/p PTCA/KELLY,
80% prox ramus, sp PTCA/KELLY
90% OM2 lesions- unsuccessful attepmt dut to wire position in dissection plane
-Chest pain post procedure with dissection- trending CK/CKMB- 349/5.5 this morning- not meeting criteria for periprocedural NC
-Echo results noted- mild dec LVSF, EF 40%, severe inf/inflat/apical lat HK, mild CLVH, no sig valve disease
-starting farxiga 10mg/daily and will have CM check mark today
-HF educator consult today
-Troponin peaked at 69.
-Brief NSVT post revascularization 02/12- none since
-tele NSR/ST, no VT/arrhythmia
-tolerating metoprolol 12.5/d
-DAPT with ASA 81 mg and ticagrelor 90 mg BID x 12 months, then ASA 81 mg daily indefinitely.
-BP a little soft and will hold on candace/arb at this time- continue to monitor over next 24 hours and consider low dose in AM
-cardiac rehab
-followup at [facility] in 2 weeks as scheduled
#HLD
-lipid profile pending
-continue lipitor 40/d
#NIDDM
-HbA1c = 10.7%
-had stopped metformin as outpt.
-will cover with ISS/daily insulin coverage as per Dr. Sidhu
-consult DM SUMMER CAMP COUNSELOR today for management
Impression / Plan
-
58 y/o male with HLD and NIDDM not taking any meds, does not follow with PCP.
New onset acute SSCP x1 hour associated with nausea. Presented to ER, initial EKG with inferior STEMI and brought emergently to radiographer cardiac catheterization.
1. STEMI/CAD/Cardiomyopathy
-02/12- 90% dRCA and 100% mRCA- s/p successful angioplasty/KELLY to both d and m lesions.
-Residual CAD in LCx/Ramus/D1-
-02/15- 90% ostium/prox D1, s/p PTCA/KELLY,
80% prox ramus, sp PTCA/KELLY
90% OM2 lesions- unsuccessful attempt due to wire position in dissection plane
-Chest pain post procedure with dissection- trending CK/CKMB- 349/5.5 this morning- not meeting criteria for periprocedural NC
-Echo results noted- mild dec LVSF, EF 40%, severe inf/inflat/apical lat HK, mild CLVH, no sig valve disease
-starting farxiga 10mg/daily and will have CM check mark today
-HF educator consult today
-Troponin peaked at 69.
-Brief NSVT post revascularization 02/12- none since
-tele NSR/ST, no VT/arrhythmia
-tolerating metoprolol 12.5/d
-DAPT with ASA 81 mg and ticagrelor 90 mg BID x 12 months, then ASA 81 mg daily indefinitely.
-BP a little soft and will hold on candace/arb at this time- continue to monitor over next 24 hours and consider low dose in AM
-cardiac rehab
-followup at [facility] in 2 weeks as scheduled
2. HLD
-lipid profile pending
-continue lipitor 40/d
3. NIDDM
-HbA1c = 10.7%
-had stopped metformin as outpt.
-will cover with ISS/daily insulin coverage as per Dr. Sidhu
-consult DM SUMMER CAMP COUNSELOR today for management
Progress Note - Operations Section Manager
Subjective
Date of Service: February 17, 2024
Denies cp/palps/dyspnea
oob ambulating
radial cath site without pain
Objective
Labs:
02/17/24 04:01
02/17/24 04:01
Labs
Hgb 15.1 g/dL (13.0-18.0) 02/17/24 04:01
Hct 42.4 % (39.0-52.0) 02/17/24 04:01
Plt Count 180 10^3/uL (130-400) 02/17/24 04:01
Sodium 137 mmol/L (135-145) 02/17/24 04:01
Potassium 4.3 mmol/L (3.5-5.1) 02/17/24 04:01
BUN 16 mg/dl (9-20) 02/17/24 04:01
Creatinine 0.8 mg/dL (0.7-1.3) 02/17/24 04:01
Glucose 184 mg/dl (70-99) H 02/17/24 04:01
Troponins
02/14/24 02/14/24
16:31 22:24
Troponin I 69.000 H* D 53.200 H*
Vital Signs and I&O:
Vital Signs
Temp Pulse Resp BP Pulse Ox
97.9 F 99 18 115/84 97
02/17/24 06:55 02/17/24 09:15 02/17/24 06:55 02/17/24 06:49 02/17/24 06:55
Vital Signs
Temp Pulse Resp BP Pulse Ox
97.9 F 99 18 115/84 97
02/17/24 06:55 02/17/24 09:15 02/17/24 06:55 02/17/24 06:49 02/17/24 06:55
Intake & Output
02/15/24 02/16/24 02/17/24 02/18/24
06:59 06:59 06:59 06:59
Intake Total 480 / 480 480 / 480
Balance 480 / 480 480 / 480
Physical Exam
Physical Exam
AAOx3, MAEE 5/5
RRR S1 S2 no murmurs
CTA bilat, non labored
soft abd, + bs
right radial cath site without ht/bleeding, non tender
bilat extremities w/palpable distal pulses, no edema
[2024-02-17] MEDS: FARXIGA 10 MG PO (10:05)
[2024-02-17 11:22] LABS: Total CK 311 U/L (55-170)
[2024-02-17 11:44] VITALS: BP 103/81
[2024-02-17 11:53] LABS: CKMB 11.4 ng/ml (0.0-2.4)
[2024-02-17 11:58] LABS: Glucose - Point of Care 196 mg/dl (70-99)
[2024-02-17 12:25] LABS: HDL Cholesterol 34 mg/dl; LDL Cholesterol, Calculated 143 mg/dl; Total Cholesterol 205 mg/dl (50-199); Triglyceride 144 mg/dl (10-149); Very Low Density Lipoprotein 28 mg/dl (0-30)
[2024-02-17] MEDS: NOVOLOG FLEXPEN SC ×2 (12:42→18:06)
[2024-02-17] MEDS: NOVOLOG FLEXPEN 10 UNITS SC (13:11)
--- NOTE | 2024-02-17 13:16 | PTCARENOTE ---
Patient safely administered his own insulin in his right abdomen
[2024-02-17 14:34] LABS: Total CK 299 U/L (55-170)
[2024-02-17 15:00] LABS: CKMB 9.1 ng/ml (0.0-2.4)
[2024-02-17 15:11] LABS: CKMB 11.4 ng/ml (0.0-2.4)
[2024-02-17 15:45] VITALS: BP 103/80
[2024-02-17 17:41] LABS: Glucose - Point of Care 94 mg/dl (70-99)
[2024-02-17] MEDS: LIPITOR 40 MG PO (18:06)
[2024-02-17] MEDS: LOVENOX 40 MG SC (18:07)
[2024-02-17] MEDS: NOVOLOG FLEXPEN-LOW RESISTANCE SC (18:08)
--- NOTE | 2024-02-17 18:16 | PTCARENOTE ---
Patient administered his insulin dose with supervision.
[2024-02-17 19:03] VITALS: BP 109/79
[2024-02-17 22:52] VITALS: BP 94/78
[2024-02-17 22:55] LABS: Glucose - Point of Care 111 mg/dl (70-99)
[2024-02-17] MEDS: LANTUS 0.15 UNITS SC (23:05)
[2024-02-18 03:04] VITALS: BP 115/78
[2024-02-18 03:04] LABS: Glucose - Point of Care 109 mg/dl (70-99)
--- NOTE | 2024-02-18 03:47 | PTCARENOTE ---
Pt. has no complaints of CP/discomfort this shift, VSS, NSR on the monitor. HS Lantus given as ordered, 0300 AccuCheck 109. Pt. hoping for discharge later today.
[2024-02-18 03:50] LABS: Hematocrit 43.6 % (39.0-52.0); Hemoglobin 15.5 g/dL (13.0-18.0); Mean Corp Hgb Conc. 35.6 g/dL (33.0-37.0); Mean Corpuscular Hgb 30.8 pg (27.0-31.0); Mean Corpuscular Volume 86.5 fL (80.0-94.0); Mean Platelet Volume 11.3 fL (7.4-10.4); Platelet Count 191 10^3/uL (130-400); Red Blood Cell Count 5.04 10^6/uL (4.70-6.10); Red Cell Dist. Width 12.1 % (11.5-14.5); White Blood Cell Count 8.6 10^3/uL (4.8-10.8)
[2024-02-18 04:21] LABS: Blood Urea Nitrogen 17 mg/dl (9-20); Calcium 9.8 mg/dl (8.4-10.2); Carbon Dioxide 21 mmol/L (22-30); Chloride 101 mmol/L (98-107); Estimated Creatinine Clearance 105 ml/min; Glucose 109 mg/dl (70-99); Potassium 4.3 mmol/L (3.5-5.1); Sodium 138 mmol/L (135-145); eGFR > 60.00
[2024-02-18 05:46] VITALS: BP 115/87
--- NOTE | 2024-02-18 06:40 | PTCARENOTE ---
Pt. tachy with ambulation this morning, 120's, ST. When checked on he said he got up to urinate too fast and felt a little dizzy, but episode passed quickly. BP 115/87. Pt. reminded to sit on side of bed for a couple of minutes prior to standing
and to take it slow, ring call bateman if any CP/SOB/or dizziness. Understanding verbalized.
[2024-02-18 06:44] VITALS: BP 91/81
[2024-02-18 06:47] LABS: Glucose - Point of Care 110 mg/dl (70-99)
[2024-02-18 07:08] VITALS: BP 112/83
[2024-02-18] MEDS: NOVOLOG FLEXPEN 7 UNITS SC ×2 (08:16→12:20)
[2024-02-18] MEDS: LOW STRENGTH ASPIRIN 81 MG PO (08:21)
[2024-02-18] MEDS: FARXIGA 10 MG PO (08:21)
[2024-02-18] MEDS: TOPROL XL 12.5 MG PO ×2 (08:21→11:21)
[2024-02-18] MEDS: BRILINTA 90 MG PO (08:22)
[2024-02-18] MEDS: NOVOLOG FLEXPEN-LOW RESISTANCE SC ×2 (08:22→12:28)
--- NOTE | 2024-02-18 08:42 | PN.DE.MGMTRT ---
Insulin Management
- -
02/18/2024 Diabetes Management Consult Follow up
Patient admitted 02/13 with chest pain. PMH Diabetes taking no medications. A1C on admission 10.7, cr .8, eGFR >60.
Patient is s/p labels molder times 2 for staged interventions. Glucose has ranged 165 to 236.
Lantus 15 units @ hs to start tonight with novolog 7 units AC. Diet was cholesterol lowering, 2 GM sodium, added 2000 calorie consistent carb diet.
Patient is awake alert and oriented out of bed able to discuss diabetes management. participated and asked questions via telephone.
States he had diabetes for approximately 7 years was taking metformin BID but stopped because his provider moved and he never renewed the prescription. 02/16 Farxiga 10 mg started this AM. Will restart metformin 1000 mg BID 02/17 with dinner.
Full instructions on insulin administration, injection sites and action of insulin. Patient able to return demonstrate. To self inject with all meals.
to check with insurance which glucose monitor is preferred, will follow up and provide meter or prescription. Full instructions on hypoglycemia symptoms and treatment reviewed and highlighted in diabetes booklet.
Spoke with patient nurse, patient to self inject all pre meal insulin injections with nursing supervision. Home pen needles provided. Nurse to notify me of pre lunch glucose.
02/17 Glucose range 02/16 94 to 198. Lantus 15 units @ hs, 3AM glucose 109, fasting this AM 110. Will make no change to lantus 15 units. Farxiga 10 mg started yesterday, AC novolog 7 units with low corrective. Will continue. Will restart
metformin 1000 mg with dinner 02/17
Diabetes History
- -
Type of Diabetes: 2
Pre-Admission Diabetes Regimen
02/18/24
03:14
Creatinine 1.0
Lab Results
Hemoglobin A1c 10.7 % (4.0-5.6) H 02/14/24 09:01
Insulin Pump Settings
IP Diabetes Regimen
02/17/24 02/17/24 02/17/24
11:57 17:40 22:53
Glucose
POC Glucose 196 H 94 111 H
02/18/24 02/18/24 02/18/24
03:03 03:14 06:46
Glucose 109 H
POC Glucose 109 H 110 H
Meal type: Dinner
Meal type: Lunch
Meal type: Breakfast
Amount consumed: 100%
Amount consumed: 100%
Amount consumed: 100%
Patient Education
--- NOTE | 2024-02-18 09:17 | W.PN.CD ---
Today's Communication / Plan
-
Increase metoprolol to 25 mg daily.
Start lisinopril 2.5 mg daily.
HF education today.
BMP in one week.
Stable for outpatient follow up.
Impression / Plan
-
Impression/Plan: 58 y/o male with HLD and DM2 (untreated) with limited recent medical contact (PCP retired) admitted with inferior STEMI.
#STEMI/CAD
-Troponin peaked at 69.
-Brief NSVT post revascularization 02/12- none since
-02/12- 90% dRCA and 100% mRCA- s/p successful angioplasty/KELLY to both d and m lesions.
-Residual CAD in LCx/Ramus/D1.
-02/15- 90% ostium/prox D1, s/p PTCA/KELLY.
80% prox ramus, sp PTCA/KELLY.
90% OM2 lesions- unsuccessful attempt due to wire position in dissection plane.
-Chest pain post procedure with dissection- trending CK/CKMB- 349/5.5, not meeting criteria for periprocedural PA.
-DAPT with ASA 81 mg and ticagrelor 90 mg BID x 12 months, then ASA 81 mg daily indefinitely.
#Ischemic Cardiomyopathy
-Echo shows mild decrease is systolic function. LVEF = 40% with severe inf/inflat/apical lat HK, mild CLVH, no sig valve disease.
-GDMT with dapagliflozin. Increase metoprolol to 25 mg daily. Start lisinopril 2.5 mg daily.
-HF educator consult today.
-Case management consult for medication pricing.
#HLD
-Chronic.
-Total cholesterol = 205, LDL = 143, HDL = 34, Triglycerides = 144
-Continue atorvastatin 40 mg daily.
-Goal LDL < 55.
#NIDDM
-Chronic, uncontrolled.
-HbA1c = 10.7%.
-had stopped metformin as outpt.
-will cover with ISS/daily insulin coverage as per Dr. Sidhu
-consult DM ASSOCIATE JAVA DEVELOPER today for management
Subjective/Interval History:
Some sinus tachycardia this morning.
Chest pain free.
DATA:
Cardiac Catheterization/PCI, 02/14/2024:
CONCLUSIONS
1. Right dominant circulation with a 30% lesion in the mid LAD, a diffusely diseased distal LAD, and 80-90% lesion in the ostium/proximal margin of D1, and 80% lesion in the proximal third of the ramus, a 60% lesion in the proximal circumflex, a
50% lesion in the mid circumflex after the origin of OM1 and leading into OM 2, a 90% lesion and a diffusely diseased OM1, a 70% lesion in the ostium of OM 2, a 90% lesion in the midportion of OM 2, and 90% lesion in the distal RCA leading into the
RPDA status post successful PCI (Medtronic [place] 3.5 x 38 KELLY, postdilated with a 3.5 NC balloon) and a culprit, 100% lesion in the distal mid RCA at the crux, status post successful PCI (Medtronic [place] 4.0 x 18 KELLY, postdilated
with a 4.0 NC balloon) with reduction in both RCA stenosis to 0%, restoring TASHA-3 flow in the right coronary artery.
2. Normal filling pressures (LVEDP = 10 mmHg at 111.8 kg).
TTE, 02/16/2024:
CONCLUSIONS
Mildly reduced left ventricular systolic function.
Left ventricular ejection fraction is 40%.
Severe inferior, inferolateral and apical lateral wall hypokinesis.
Mild concentric left ventricular hypertrophy.
No significant valvular disease.
No prior study available for comparison.
Cardiac Catheterization/PCI, 02/16/2024:
CONCLUSIONS
1. Right dominant circulation status post prior PCI to the mid and distal RCA in the context of ST elevation myocardial infarction, and 90% lesion in the ostium/proximal margin of the first diagonal status post successful PCI (Medtronic [place] 2.5 x 15 KELLY, postdilated with a 2.75 NC balloon), a 70-80% lesion in the proximal third of the ramus intermedius status post successful PCI (Medtronic [place] 2.5 x 18 KELLY), a 60% lesion in the proximal circumflex, a 50% lesion in
the mid circumflex after the origin of OM1 and leading into OM 2, diffuse disease of OM1 and tandem, 90% lesions in the proximal and mid section of OM 2, status post balloon angioplasty and unsuccessful PCI.
2. Wire dissection of the mid section of OM 2 with preservation of TASHA-3 flow.
Physical Exam
Vital Signs/Labs
Vital Signs
Temp Pulse Resp BP Pulse Ox
36.3 C 80 18 115/87 99
02/18/24 06:50 02/18/24 06:00 02/18/24 06:50 02/18/24 05:46 02/18/24 06:50
02/16/24 02/17/24 02/18/24
11:59 11:59 11:59
Actual Weight 106.6 kg
02/18/24 03:14
02/18/24 03:14
Triglycerides 144 mg/dl (10-149) 02/17/24 04:01
LDL Cholesterol, Calc 143 mg/dl 02/17/24 04:01
VLDL Cholesterol, Calc 28 mg/dl (0-30) 02/17/24 04:01
HDL Cholesterol 34 mg/dl 02/17/24 04:01
Physical Exam
Constitutional: No acute distress and Comfortable
EENT: Anicteric and Moist mucous membranes
Cardiovascular: Rhythm & rate is regular, Pedal edema is absent, JVD pressure is normal, S1S2 is normal and Murmur/rub/gallop absent
Respiratory: Respiratory effort normal, Lungs clear to auscul., Wheeze Absent, Crackles Absent and Rhonchi Absent
GI: Soft, Distention absent, Flat, Non tender and Normal bowel sounds
Neuro/Psych: AO x 3
Other: Cath Site (Right radial access site is C/D/I.)
Data Reviewed
-
Date of Service: February 18, 2024
Medical Decision Making: Reviewed Test Results, Independent Historian Assessment, Test Interpretation and Review of Case with other Provider
EKG: Tracing Personally Visualized and interpreted and Report Reviewed by me
Echo: Tracing Personally Visualized and interpreted and Report Reviewed by me
X-Ray/CT/US/MRI/NUC/PET: Image Personally Visualized and interpreted and Report Reviewed by me
Medical Tests (PFT, Pathology etc): Image Personally Visualized and interpreted and Report Reviewed by me
Labs: Labs Reviewed by me
--- NOTE | 2024-02-18 09:57 | CM ---
Reviewed chart. Telephone call to [facility] to confirm Brilinta 90 mg po and Farxiga are in stock. Both scripts have been filled. Met with Mr. Teran to review discharge plans. He states he is feeling well and maybe able to go home soon.
Prior to admission he resides with his spouse in a two story home with one step to enter. He has to go up a full flight of steps to get to bedroom/full bathroom. He has a powder room on the first floor. Prior to admission he was independent with
ambulation and adls. He does not have any DME in the home. He has a prescription plan and uses [facility]. Medical work-up in progress. The discharge plan is to return home with her spouse when medically stable.
--- NOTE | 2024-02-18 10:27 | W.PN.HFE ---
Impression / Plan
- -
58 yo male admitted with STEMI. Past medical history includes DM II and hyperlipidemia. His current ejection fraction by echocardiogram is 40%. He lives at home with his Priscilla who was present via phone for this session. He reports not eating
well, Unique breakfast sandwich, chicken salad, lunch meats and discontinued his metformin. He drink approximately 64 floz of Unique diet iced tea and multiple diet sodas per day. He has a scale at home and does not weighs himself daily.
I provided HF education and discussed medications, follow up care and the usual lifestyle recommendations. I advised begin to follow a low sodium diet of 3977-7633 mg. per day, and limit it to 500-750 mg. per meal. I encouraged him to meet with a
thinner sprayer to discuss best ways to support a low sodium dietbetic diet. I advised a 64oz fluid restriction per day and discussed ways to achieve the recommendations. I also advised he continue weighing himself daily and monitoring for weight gain. I
explained how to monitor for exacerbations. We discussed other alarming symptoms to watch for and when to notify his provider. We discussed the importance of diabetic control to his overall wellbeing. He expressed motivation to make changes and some
overwhelm and anxiety. Emotional support provided to him and his .
Recommendations:
Continue all HF recommended medications as ordered on discharge.
Limit sodium intake to <500-750 mg per meal.
Limit fluid intake to <64 oz per day.
Daily weights and contact provider for any weight gain >3lbs in one day or 5lbs in one week.
Follow up with provider as recommended.
Subjective/Objective Data
- Chief Complaint
Chief Complaint: Other (STEMI)
- Past Medical History
Past Medical History: NIDDM
- Social History
Tobacco: Non-smoker
Alcohol: Occasional
Drug: None
Personal: (- Priscilla)
Living: with family
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
- Objective Data
Vital Signs
Temp Pulse Resp BP Pulse Ox
97.4 F 80 18 115/87 99
02/18/24 06:50 02/18/24 06:00 02/18/24 06:50 02/18/24 05:46 02/18/24 06:50
Laboratory Results
02/18/24 03:14
02/18/24 03:14
Last Echo Date:
Results:
Medications:
- NYHA Class Score
Class I: No limitation of physical activity. Ordinary physical activity does not cause undue fatigue, palpitation, or dyspnea (shortness of breath).
Class II: Slight limitation of physical activity. Comfortable at rest, but ordinary physical activity results in fatigue, palpitation, or dyspnea.
Class III: Marked limitation of physical activity. Comfortable at rest, but less than ordinary activity causes fatigue, palpitation or dyspnea.
Class IV: Unable to carry out any physical activity without discomfort. Symptoms of cardiac insufficiency at rest. If any physical activity is undertaken, discomfort is increased.
- LACE Score
LACE score is defined as:
- Length of Stay
- Acuity of Admission
- Comorbidities
- ED visits in last 6 months
(LACE score >/= to 10 is High Risk for readmission within 30 days)
Transition of Care Planning
- -
Does the patient have a scale at home: Yes
Does patient need and/or request VN services: No
Heart Failure Education
- -
Readiness to Learn:: Receptive, Motivated
Method:: Print, Teach back, Verbal
Time spent: 45
Person Taught: Patient, Significant Other
Home Management: Activity, Daily weight, Fluid restriction, Medications, Provider follow-up, Risk factors, Testing, Treatment/procedures, What is heart failure, When to call physician, Worsening signs/symptoms, 2 gm NA diet
Patient specific risk factors: Diabetes, Diet and excercise, Stress
Heart Failure medications: Beta Blockers, SGLT-2 (Sodium Glucose Transport Protein 2) inhibitors
Response to teaching: Demonstrate understanding, Verbalizes understanding, Needs reinforcement
Topic that needs reinforcement/Comment: low sodium diet
[2024-02-18 11:25] VITALS: BP 104/76
--- NOTE | 2024-02-18 12:20 | W.DS.TRANS ---
DC Summary - Bridge Maintainer
-
Discharge Instructions:
Discharge Diagnosis/Procedures STEMI, s/p angioplasty and stent x2 to Right
Coronary artery (02/13), s/p angioplasty and
stent x1 to Diagonal artery and x1 to Ramus
artery, angioplasty only to Obtuse Marginal
artery (02/15)
Cardiomyopathy with Heart Failure
Diabetes
Diet Low Cholesterol,Diabetic, Carb Controlled,Low
Sodium,Restrict fluids to 64 oz
Activity No strenuous activity
Additional Activity for 2 weeks
Driving Restrictions No driving for 24 hours
Blood Work BMP in 1 week- results to Dr. Sidhu
Other Services Cardiac Rehab
Specialty Instructions Weigh Daily
Instructions: *[facility] Heart Failure Instructions
Stand-Alone Forms: DC Instructions- Cath/EP Lab
Changes to Home Medications: Yes
Discharge Medications:
DC Medications w/original date entered in [employer]
aspirin 81 mg chewable tablet 81 mg PO DAILY #90 tabs 02/16/24
atorvastatin 40 mg tablet 40 mg PO QPM #90 tabs 02/16/24
nitroglycerin 0.4 mg sublingual tablet 0.4 mg sublingual [id number] PRN chest pain #25 tabs 02/16/24
ticagrelor 90 mg tablet (Brilinta) 90 mg PO BID #180 tabs 02/16/24
dapagliflozin propanediol 10 mg tablet 10 mg PO DAILY #90 tabs 02/17/24
blood sugar diagnostic (Contour Next Test Strips) #200 ea 02/18/24
blood-glucose meter,continuous (Dexcom G6 Soil And Plant Scientist) #1 ea 02/18/24
blood-glucose sensor (ReactX G6 Sensor device) #3 ea 02/18/24
blood-glucose transmitter (ReactX G6 Transmitter device) #1 ea 02/18/24
dapagliflozin propanediol 10 mg tablet (Farxiga) 10 mg PO DAILY #30 tabs 02/18/24
insulin aspart U-100 100 unit/mL (3 mL) subcutaneous pen (Novolog FlexPen U-100 Insulin aspart) 7 unit (0.07 mL) SC AC #5 ea 02/18/24
insulin glargine 100 unit/mL (3 mL) subcutaneous pen (Lantus Solostar U-100 Insulin) 15 unit (0.15 mL) SC HS #5 ea 02/18/24
lancets 21 gauge (Color Lancets) #200 ea 02/18/24
lisinopril 2.5 mg tablet 2.5 mg PO DAILY #90 tabs 02/18/24
metformin 1,000 mg tablet 1,000 mg PO BID@0800,1700 #60 tabs 02/18/24
metoprolol succinate 25 mg tablet,extended release 24 hr 25 mg PO DAILY #90 tabs 02/18/24
pen needle, diabetic 32 gauge x /32' (BD Ultra-Fine Darby Pen Needle) #200 ea 02/18/24
Home Medication Changes
ALL MEDICATIONS AND SUPPLIES ARE NEW
Pending Results: No
[2024-02-18 12:24] LABS: Glucose - Point of Care 104 mg/dl (70-99)
--- NOTE | 2024-02-18 12:25 | PTCARENOTE ---
Discharge teaching completed. Patient verbalized understanding. at bedside, eating lunch now
--- NOTE | 2024-02-18 12:54 | PTCARENOTE ---
Patient discharged to home, IV and telemetry removed. Escorted to lobby with wheelchair; his is driving him home
--- NOTE | 2024-02-19 11:00 | PN.CDI ---
CDI
- -
CDI:
Physician Documentation Request
Admit Date: 02/14/24 08:53
Dear Brittanie MCCARTY,
Patient admitted with a STEMI.
02/17 Cardiology note, 'Echo shows mild decrease is systolic function. LVEF = 40% with severe inf/inflat/apical lat HK, mild CLVH, no sig valve disease....-HF educator consult today.'
02/17 Heart Failure PN,'Recommendations: Continue all HF recommended medications as ordered on discharge.
02/18 Discharge Summary, 'Instructions: *[facility] Heart Failure Instructions.'
Please provide further specificity regarding the most likely type and acuity of CHF you are evaluating, treating or monitoring:
Type Acuity
Systolic Acute
Diastolic Chronic
Combined Systolic/Diastolic Acute on Chronic
Other Unable to Determine
Unable to Determine
Use of terms such as suspected, likely, concern for, or probable (associated with a specific diagnosis that is being evaluated, monitored, or treated as if it exists) are acceptable and can be coded in the inpatient setting, when documented at the
time of discharge.
Thank you,
Greta KAMARA,RN,CCDS
CDI Specialist
Available via [place] text
Please use your independent medical judgment in providing your response.
--- NOTE | 2024-02-19 14:17 | W.HF.CON ---
Heart Failure
- LV Function
Left ventricular function study result: LV Ejection fraction >35% - 40%
Ejection Fraction Percentage: 40
- ARNI
Patient already on ARNI: No
Heart Failure ARNI Contraindication: Hypotension
- ACEI/ARB
Patient already on ACEI/ARB: Yes
- Beta Gala
Patient already on Evidence Based Beta Gala: Yes
- Mineralocorticord Receptor Antagonist
Patient already on MRA: No
Heart Failure MRA Contraindication: Hypotension
- SGLT-2 Inhibitor
Patient already on SGLT-2 Inhibitor: Yes
- NYHA CHF Classification
NYHA CHF Classification Level: Class III - Symptoms w/ min exertion, interferes w/ nml daily activity
- ACC/AHA Stage
ACC/AHA Stage: Stage C: Symptomatic Heart Failure
== END 2024-02-18 13:10 | disposition home or self-care (01) | DRG 321 ==
LOC: IVU 08:53
PROVIDERS: Nurse Practitioner; ADMITTING PHYSICIAN Internal Medicine Cardiovascular Disease; EMERGENCY PHYSICIAN Emergency Medicine
PROC: 4A023N7 Measurement of Cardiac Sampling and Pressure, Left Heart, Percutaneous Approach (ICD-10-PCS; 2024-02-14)
PROC: B2111ZZ Fluoroscopy of Multiple Coronary Arteries using Low Osmolar Contrast (ICD-10-PCS; 2024-02-14)
PROC: 027035Z Dilation of Coronary Artery, One Artery with Two Drug-eluting Intraluminal Devices, Percutaneous Approach (ICD-10-PCS; 2024-02-14)
PROC: 03JY3ZZ Inspection of Upper Artery, Percutaneous Approach (ICD-10-PCS; 2024-02-16)
PROC: 027135Z Dilation of Coronary Artery, Two Arteries with Two Drug-eluting Intraluminal Devices, Percutaneous Approach (ICD-10-PCS; 2024-02-16)
DX: I21.19 ST elevation (STEMI) myocardial infarction involving other coronary artery of inferior wall (principal); I50.21 Acute systolic (congestive) heart failure; I47.20 Ventricular tachycardia, unspecified; E11.9 Type 2 diabetes mellitus without complications; I45.10 Unspecified right bundle-branch block; E78.00 Pure hypercholesterolemia, unspecified; K21.9 Gastro-esophageal reflux disease without esophagitis; I25.10 Atherosclerotic heart disease of native coronary artery without angina pectoris; I25.5 Ischemic cardiomyopathy
CPT/HCPCS: 80048; 80061; 82550; 82553; 82962; 83036; 84484; 85025; 85027; 85347; 86803; 93005; 93306; 93458; 99291; C1725; C1769; C1874; C1894; C9600; C9606; Q9950; Q9967

== ENCOUNTER 2024-03-22 16:25 | Outpatient (RCR) | payer BC, SELFPAY ==
[2024-03-16 08:50] LABS: Glucose - Point of Care 84 mg/dl (70-99)
[2024-03-16 09:11] LABS: Glucose - Point of Care 91 mg/dl (70-99)
[2024-03-18 07:23] LABS: Glucose - Point of Care 154 mg/dl (70-99)
[2024-03-18 07:57] LABS: Glucose - Point of Care 107 mg/dl (70-99)
[2024-03-19 14:35] LABS: Glucose - Point of Care 128 mg/dl (70-99)
[2024-03-19 15:27] LABS: Glucose - Point of Care 63 mg/dl (70-99)
[2024-03-19 16:00] LABS: Glucose - Point of Care 116 mg/dl (70-99)
[2024-03-22 14:51] LABS: Glucose - Point of Care 106 mg/dl (70-99)
[2024-03-22 15:43] LABS: Glucose - Point of Care 68 mg/dl (70-99)
[2024-03-22 16:17] LABS: Glucose - Point of Care 61 mg/dl (70-99)
[2024-03-22 16:54] LABS: Glucose - Point of Care 128 mg/dl (70-99)
== END 2024-03-22 23:59 | disposition home or self-care (01) ==
LOC: CRHB 16:25
PROVIDERS: ATTENDING PHYSICIAN Internal Medicine Cardiovascular Disease
DX: I25.10 Atherosclerotic heart disease of native coronary artery without angina pectoris (principal); Z95.5 Presence of coronary angioplasty implant and graft; I25.2 Old myocardial infarction
CPT/HCPCS: 82962; 93797; 93798

== ENCOUNTER 2024-04-21 15:25 | Outpatient (RCR) | payer BC, SELFPAY ==
[2024-03-24 14:55] LABS: Glucose - Point of Care 183 mg/dl (70-99)
[2024-03-24 15:45] LABS: Glucose - Point of Care 87 mg/dl (70-99)
[2024-03-24 16:08] LABS: Glucose - Point of Care 90 mg/dl (70-99)
[2024-03-26 14:38] LABS: Glucose - Point of Care 128 mg/dl (70-99)
[2024-03-26 15:37] LABS: Glucose - Point of Care 86 mg/dl (70-99)
[2024-03-26 16:06] LABS: Glucose - Point of Care 99 mg/dl (70-99)
[2024-03-29 14:58] LABS: Glucose - Point of Care 104 mg/dl (70-99)
[2024-03-29 15:58] LABS: Glucose - Point of Care 90 mg/dl (70-99)
[2024-03-29 16:10] LABS: Glucose - Point of Care 109 mg/dl (70-99)
[2024-03-31 06:37] LABS: Glucose - Point of Care 108 mg/dl (70-99)
[2024-03-31 07:33] LABS: Glucose - Point of Care 145 mg/dl (70-99)
[2024-04-02 16:46] LABS: Glucose - Point of Care 96 mg/dl (70-99)
[2024-04-02 17:02] LABS: Glucose - Point of Care 97 mg/dl (70-99)
[2024-04-02 17:20] LABS: Glucose - Point of Care 120 mg/dl (70-99)
[2024-04-02 17:39] LABS: Glucose - Point of Care 135 mg/dl (70-99)
[2024-04-05 14:56] LABS: Glucose - Point of Care 159 mg/dl (70-99)
[2024-04-05 15:45] LABS: Glucose - Point of Care 111 mg/dl (70-99)
[2024-04-21 14:51] LABS: Glucose - Point of Care 163 mg/dl (70-99)
[2024-04-21 15:45] LABS: Glucose - Point of Care 82 mg/dl (70-99)
== END 2024-04-21 23:59 | disposition home or self-care (01) ==
LOC: CRHB 15:25
PROVIDERS: ATTENDING PHYSICIAN Internal Medicine Cardiovascular Disease
DX: I25.10 Atherosclerotic heart disease of native coronary artery without angina pectoris (principal); I25.2 Old myocardial infarction; Z95.5 Presence of coronary angioplasty implant and graft
CPT/HCPCS: 82962; 93797; 93798

== ENCOUNTER 2024-05-14 17:01 | Outpatient (RCR) | payer BC, SELFPAY ==
[2024-04-23 14:42] LABS: Glucose - Point of Care 168 mg/dl (70-99)
[2024-04-23 15:40] LABS: Glucose - Point of Care 134 mg/dl (70-99)
[2024-04-26 14:49] LABS: Glucose - Point of Care 124 mg/dl (70-99)
[2024-04-26 15:44] LABS: Glucose - Point of Care 107 mg/dl (70-99)
[2024-04-28 14:53] LABS: Glucose - Point of Care 205 mg/dl (70-99)
[2024-04-28 15:44] LABS: Glucose - Point of Care 133 mg/dl (70-99)
[2024-04-30 14:50] LABS: Glucose - Point of Care 106 mg/dl (70-99)
[2024-04-30 15:47] LABS: Glucose - Point of Care 100 mg/dl (70-99)
[2024-05-07 14:38] LABS: Glucose - Point of Care 110 mg/dl (70-99)
[2024-05-07 15:32] LABS: Glucose - Point of Care 94 mg/dl (70-99)
[2024-05-07 15:46] LABS: Glucose - Point of Care 108 mg/dl (70-99)
[2024-05-10 14:57] LABS: Glucose - Point of Care 108 mg/dl (70-99)
[2024-05-10 15:52] LABS: Glucose - Point of Care 79 mg/dl (70-99)
[2024-05-10 16:16] LABS: Glucose - Point of Care 118 mg/dl (70-99)
[2024-05-12 14:39] LABS: Glucose - Point of Care 112 mg/dl (70-99)
[2024-05-12 15:43] LABS: Glucose - Point of Care 106 mg/dl (70-99)
[2024-05-14 14:01] LABS: Glucose - Point of Care 109 mg/dl (70-99)
== END 2024-05-14 23:59 | disposition home or self-care (01) ==
LOC: CRHB 17:01
PROVIDERS: ATTENDING PHYSICIAN Internal Medicine Cardiovascular Disease
DX: I25.10 Atherosclerotic heart disease of native coronary artery without angina pectoris (principal); Z95.5 Presence of coronary angioplasty implant and graft
CPT/HCPCS: 82962; 93797; 93798

== ENCOUNTER 2024-05-17 13:10 | Inpatient (IN) | payer BC, SELFPAY ==
[2024-05-17] VITALS (34 sets, daily range): BP systolic 75–106; BP diastolic 40–80; BMI 20.6; BMI 23.7
[2024-05-17] MEDS: BENADRYL 50 MG IV (10:05)
[2024-05-17] MEDS: ADRENALIN 0.3 MG IM (10:05)
[2024-05-17] MEDS: PEPCID 20 MG IV ×2 (10:10→21:08)
[2024-05-17 10:12] LABS: Glucose - Point of Care 116 mg/dl (70-99)
[2024-05-17] MEDS: DECADRON 10 MG IV (10:17)
--- NOTE | 2024-05-17 10:23 | RESPNOTE ---
patient transferred to ED after possible allergic reaction during outpatient procedure. patient seen on NRB 100%, SpO2 >95%. patient able to verbally communicate with staff.
--- NOTE | 2024-05-17 10:39 | ED.GENMED ---
History of Present Illness
General
Chief Complaint: Breathing Problem
Source: patient and other (Cardiology team)
Exam Limitations: clinical condition
Time Seen by Provider: 05/17/24 10:09
History of Present Illness
History of Present Illness:
The patient is a 58-year-old man with a past medical history of coronary artery disease who was undergoing a cardiac echo just prior to arrival and developed a mental status change within 3 minutes of getting IV contrast called Lumason. Reportedly,
patient became flushed and less responsive. Patient arrives to the ED lethargic, hypotensive, flushed and hypoxic. Patient reports feeling short of breath and having chest pain. The patient reports he felt burning in his face right after getting
the IV contrast.
Past History
Past History
ED Past Medical History: CAD, CHF and Hypercholesterolemia
ED Past Surgical History: Other
Social History
Tobacco: Non-smoker
Alcohol: Occasional
Drug: None
Personal:
Living: with family
Employment: Employed
Family History
Family History: Unable to obtain
Review of Systems
Review of Systems
Allergies reviewed?: Yes
All Other Systems: ROS reviewed and negative except as documented in HPI and ROS
Constitutional: Reports fatigue
EENT: Reports no symptoms
Respiratory: Reports trouble breathing
Cardiac: Reports chest pain, diaphoresis and other (Presyncopal)
ABD/GI: Reports no symptoms
: Reports no symptoms
Musculoskeletal: Reports no symptoms
Skin: Reports other (Flushed, burning sensation)
Neurological: Reports weakness (Generalized weakness)
Endocrine: Reports no symptoms
Hematologic/Lymphatic: Reports no symptoms
Psychiatric: Reports no symptoms
Phy Exam
Physical Exam
Physical Exam:
Physical Exam
General: Patient appears flushed, diaphoretic, awake but lethargic
Neck: supple. no meningeal signs. normal psoterior pharynx
Heart: Tachycardic
Lungs: Tachypneic, decreased breath sounds bilaterally, no wheezing
Abdomen: Soft
Neuro: alert but lethargic, nonfocal
Skin: Diffusely flushed of face, extremities and chest and abdomen
Psychiatric: Cooperative, appears anxious yet lethargic
Extremities: no edema. Cool extremities
Scores
Heart Failure Risk
Heart Failure Risk Score: Not Applicable
Course
Orders/Labs/Results
Orders:
Orders
05/17/24 10:05
Diphenhydramine [Benadryl] 50 mg IV NOW STA
EPINEPHrine PF [Adrenalin] 0.3 mg IM NOW STA
05/17/24 10:08
Famotidine [Pepcid] 20 mg .ROUTE .STK-MED ONE
05/17/24 10:09
Dexamethasone Pf [Decadron] 20 mg .ROUTE .STK-MED ONE
05/17/24 10:10
Famotidine [Pepcid] 20 mg IV NOW STA
05/17/24 10:15
Dexamethasone Sod Phosphate [Decadron] 10 mg IV NOW STA
EPINEPHrine 4 mg/250 mL NSS [Adrenalin] 4 mg in 250 ml .ROUTE .STK-MED
05/17/24 10:16
Electrocardiogram (*1) Urgent
Reason for Study: Chest Pain
EKG- Treatment ONCE
CR Chest Portable - 1 View Urgent
Comment:
Reason For Exam: SOB
Reason Study Needs to be Portable: Patient Unstable
05/17/24 10:32
Complete Blood Count/With Diff Urgent
Comprehensive Metabolic Panel Urgent
Manual Differential Urgent
Troponin I Urgent
0.9% Sodium Chloride 1000 ml [Nss] 1,000 ml IV BOLUS
05/17/24 12:33
Admit/Transfer Patient As Directed
Co-Sign Provider:
Level of Care: Inpatient admission
Assign to:: IMU- Intermediate Care
Physician / Group: [email or web address]
Diagnosis: Anaphylaxis shock to IV Contrast ( Lumason)
Reason for Hospitalization: Anaphylaxis shock to IV Contrast ( Lumason
Expected length of stay greater than two midnights?: Yes
ELOS- Estimated Length of Stay in days: 2
I certify the patient meets the requirements for IP care: Yes
05/17/24 12:38
Code Status As Directed
Resuscitation Status: Full Code
Abnormal Lab Results
05/17/24 05/17/24
10:09 10:32
RBC 6.54 H 10^6/uL
(4.70-6.10)
Hgb 20.1 H* g/dL
(13.0-18.0)
Hct 60.3 H* %
(39.0-52.0)
MPV 11.3 H fL
(7.4-10.4)
Abs Neuts (Manual) 0.8 L* 10^3/uL
(1.4-6.5)
Segmented Neutrophils 12 L %
(42-75)
Lymphocytes (Manual) 66 H %
(20-51)
Monocytes (Manual) 1 L %
(2-9)
Carbon Dioxide 19 L mmol/L
(22-30)
BUN 25 H mg/dl
(9-20)
Glucose 132 H mg/dl
(70-99)
POC Glucose 116 H mg/dl
(70-99)
05/17/24 10:32
05/17/24 10:32
Vital Signs
Initial and Last Documented VS:
Initial Vital Signs
Pulse Resp BP Pulse Ox
93 26 78/67 98
05/17/24 10:07 05/17/24 10:07 05/17/24 10:07 05/17/24 10:07
Last Documented Vital Signs
Pulse Resp BP Pulse Ox
113 22 94/67 96
05/17/24 11:01 05/17/24 11:01 05/17/24 10:50 05/17/24 11:01
MDM/Problems Addressed
Differential Diagnosis Includes:
Anaphylactic shock, acute NH, pulmonary edema
MDM/Problems Addressed:
Patient presents acutely flushed, hypoxic, tachypneic and tachycardic
Chronic conditions affecting care: Cardiomyopathy
Acute Exacerbation and/or Progression of Chronic Illness:
Patient may have acute exacerbation of CHF
Acute Exacerbation and/or Progression of Chronic Illness: Cardiomyopathy
*Radiology
Radiology exam reviewed: preliminary read by ED provider (Chest x-ray read by me. No acute disease) and radiology read reviewed
*Pulse Oximetry
Patient hypoxic: yes
*EKG
Interpreted by ED Provider?: Yes
Interpretation: abnormal
Rate: tachycardiac
Rhythm: sinus
[place]: left axis deviation
Interval: normal interval
QRS Pattern: right bundle branch block
Ischemia: non-specific ST changes
*[employer] Education Teacher Interpretation
Rate: tachycardiac
Interpretation: abnormal
Rhythm: sinus
*Critical Care Note
Total Time (30-74mins, 75-104mins- exclusive of procedures): 45 minutes of critical ca
comment:
45 minutes critical care given to the patient including frequent reassessments of his mental status, pulse ox, heart rate, and blood pressure.
Data Reviewed
Review of Other/Old Records Reveals: Progress Notes (Cardiology progress note reviewed by me. Patient has a known EF of 40% due to ischemic cardiomyopathy)
Source: patient and other (Cardiology team, including Dr. Gil who is at the bedside.)
Update Note
Update Note:
12 PM patient is breathing much more comfortably. Rash is nearly gone. Patient's blood pressure 80s/
Patient 60s. Patient's reports that his blood pressure is always on the low side and is usually in the 90s systolic. Patient's lungs are clear. He has no wheezing. He denies any swelling of the lips, tongue or throat.
ED Attending Note
-
Portions of this chart may have been created with voice recognition software.� Occasional wrong word or��sound alike� substitutions may have occurred due to the inherent limitations of voice recognition software.
Discharge Plan
Departure
Patient Disposition: Admit
Date of Disposition: 05/17/24
Time of Disposition: 12:08
Admit to: Telemetry
Presentation/result/management discussed w/ accepting MD/DO: Hospitalist
Patient with high blood pressure during this ER visit?: No
Condition: Fair
Covid-19: Not Applicable
Discharge Problem:
Anaphylactic shock due to contrast
Interventions
Interventions:
*Risk Screen - Suicide Last Done: 05/17/24 10:44
*General Assessment Last Done: 05/17/24 10:30
*Neglect/Abuse Screening Last Done: 05/17/24 10:44
ED- Fall Risk Assessment Last Done: 05/17/24 10:30
*ED COVID-19 Vaccine History Last Done: 05/17/24 10:07
ED- Cardiac Assessment Last Done: 05/17/24 10:30
ED- Pulmonary Assessment Last Done: 05/17/24 10:30
[2024-05-17] MEDS: NSS 1000 IV ×2 (10:46→15:40)
[2024-05-17 11:01] LABS: ALT (SGPT) 32 U/L (0-50); AST (SGOT) 39 U/L (17-59); Albumin 4.6 g/dl (3.5-5.0); Alkaline Phosphatase 117 U/L (38-126); Blood Urea Nitrogen 25 mg/dl (9-20); Calcium 9.5 mg/dl (8.4-10.2); Carbon Dioxide 19 mmol/L (22-30); Chloride 104 mmol/L (98-107); Estimated Creatinine Clearance 93 ml/min; Glucose 132 mg/dl (70-99); Potassium 3.6 mmol/L (3.5-5.1); Sodium 139 mmol/L (135-145); Total Protein 7.8 g/dl (6.3-8.2); eGFR > 60.00
[2024-05-17 11:03] LABS: Hematocrit 60.3 % (39.0-52.0); Hemoglobin 20.1 g/dL (13.0-18.0); Mean Corp Hgb Conc. 33.3 g/dL (33.0-37.0); Mean Corpuscular Hgb 30.7 pg (27.0-31.0); Mean Corpuscular Volume 92.2 fL (80.0-94.0); Mean Platelet Volume 11.3 fL (7.4-10.4); Platelet Count 222 10^3/uL (130-400); Red Blood Cell Count 6.54 10^6/uL (4.70-6.10); Red Cell Dist. Width 14.1 % (11.5-14.5); White Blood Cell Count 5.4 10^3/uL (4.8-10.8)
[2024-05-17 11:13] LABS: Troponin I < 0.012 ng/ml
--- NOTE | 2024-05-17 11:13 | EDRN ---
Received patient from outpatient ECHO with c/o chest tightness and SOB that started several minutes after received IV Lumason. Patient placed on 100% NRB mask. Patient with generalized red rash. Denies any itching,throat tightness and tongue
swelling. See MAR for medication administration. Patient stated that his breathing and chest tightness was improved after receiving the medications. Patient placed O2 4LNC by .
[2024-05-17 11:37] LABS: Band Neutrophils 3 % (0-3); Segmented Neutrophils 12 % (42-75)
[2024-05-17 11:38] LABS: Atypical Lymphocytes 15 %; Eosinophils 1 % (0-6); Lymphocytes 66 % (20-51); Metamyelocytes 2 % (-); Monocytes 1 % (2-9)
[2024-05-17 11:39] LABS: Normal RBC Morphology Yes; Platelets Checked Yes; Total Cells Counted 100
[2024-05-17 11:40] LABS: Absolute Neutrophils -Man Diff 0.8 10^3/uL (1.4-6.5)
--- NOTE | 2024-05-17 12:26 | HPS.HSE ---
Family Physician
-
Family Physician: NOT KNOW UNKNOWN - PT DOES
Chief Complaint
-
contrast reaction
History of Present Illness
HPI
58M HX IDDM, HLD, CAD, ICM with LVEF 40 % seen at ER
- sent fron laboratory tester
- while undergoing a cardiac echo and onset AMS within 3 minutes of getting IV contrast called Lumason
- Reportedly, patient became flushed and less responsive.
- Patient reports feeling short of breath and having chest pain.
- reports he felt burning in his face right after getting the IV contrast.
@ ER : lethargic, hypotensive, flushed and hypoxic.
Received : IV Dexa 20 mg, IV Famotidine , IV Benadryl 50mg
Medical History
Past Medical History
Past Medical History: Reports Hypercholesterolemia and NIDDM
Past Surgical History: Reports None
Social History
Tobacco: Non-smoker
Alcohol: None
Drug: None
Personal:
Living: With Family
Family History
Family History: Not pertinent
Allergies / Home Medications
Allergies reflects when Allergies were last updated in [employer].
Home Medications with original date entered in [employer]
Allergy/Medication List:
No current medications.
NKDA.
Review of Systems
-
A 12 point ROS was completed and negative except as noted: Yes
Constitutional: Reports See HPI
EENT: Reports No Symptoms
Respiratory: Reports No Symptoms
Cardiac: Reports No Symptoms
Abdomen/GI: Reports Nausea
: Reports No Symptoms
Musculoskeletal: Reports No Symptoms
Neurological: Reports No Symptoms
Physical Exam
Vital Signs
Vital Signs
Pulse Resp BP Pulse Ox
113 22 94/67 96
05/17/24 11:01 05/17/24 11:01 05/17/24 10:50 05/17/24 11:01
Physical Exam
General: Well Nourished, Obese and Other (appears flushed, diaphoretic, awake but lethargic)
HEENT: NormoCephalic, Anicteric, Moist mucous membranes, Atraumatic, PERRLA, [place] Conjunctivae, No Ptosis, Nose Appears Normal and Ears Appear Normal
Respiratory: Clear and Non Labored Respirations
Cardiac: S1/S2, Regular Rhythm, Tachycardia and Other (hypotensive )
Breast: Deferred by me
GI: Soft, Non Tender, Non Distended and Normal Bowel Sounds
Rectal: Deferred by Provider
Genito-urinary: Deferred by me
Musculoskeletal: No Clubbing, No Cyanosis and No Edema
Skin: Warm and Dry
Neuro: Awake and AO x 3; No Alert (lethargic )
Hematologic/Lymphatic: No Lymphadenopathy
Psych: Calm
Laboratory Results
-
05/17/24 10:32
05/17/24 10:32
Laboratory Results
Total Bilirubin 1.0 mg/dl (0.2-1.3) 05/17/24 10:32
AST 39 U/L (17-59) 05/17/24 10:32
ALT 32 U/L (0-50) 05/17/24 10:32
Alkaline Phosphatase 117 U/L (38-126) 05/17/24 10:32
Troponin I < 0.012 ng/ml 05/17/24 10:32
Data Reviewed
-
Medical Tests (Nuc Med, Echo, EKG etc): Report Reviewed by me
Lab Data: Labs Reviewed by me
Impression/Plan
-
Data
Selected Entries
05/17/24
10:07 05/17/24
10:41 05/17/24
10:50
Pulse 112
Blood pressure 78/67 97/79
05/17/24
10:50 05/17/24
11:00 05/17/24
11:01
Pulse 113 113
Blood pressure 94/67
Laboratory Tests
05/17/24
10:32
WBC 5.4
Hgb 20.1 H*
Hct 60.3 H*
Plt Count 222
eGFR > 60.00
Troponin I < 0.012
CXR: No radiographic evidence of acute cardiopulmonary abnormality
EKG report
SINUS TACHYCARDIA
RIGHT BUNDLE BRANCH BLOCK
POSSIBLE LATERAL INFARCT , AGE UNDETERMINED
INFERIOR INFARCT (CITED ON OR BEFORE 07-SEP-2019)
ABNORMAL ECG
WHEN COMPARED WITH ECG OF 17-FEB-2024 03:47,
BORDERLINE CRITERIA FOR LATERAL INFARCT ARE NOW PRESENT
T WAVE INVERSION LESS EVIDENT IN INFERIOR LEADS
02/16/24 TTE
LVEF 40
Severe inferior, inferolateral and apical lateral wall hypokinesis.
Mild concentric left ventricular hypertrophy.
No significant valvular disease.
Very remote HX hospitalist admission:
ASSESSMENT & PLAN
Anaphylaxis shock to IV Contrast ( Lumason )
Protecting AW
- c/w NS @ 60/H for 1000 cc only
- c/w : IV Decadron 6mg q6h, IV Benadryl 25mg q6h, IF Femotidine q12H
- Close observation at IMU
HX ICM with LVEF 40%
- Not on Diuretics at home
- observe wt due to at risk for fluid overload with IVF resus for shock
- Hold metoprolol for now
HX CAD
HX HLD
-c/w ASA , Atorvastatin and Ticagrelor
HX IDDM
- Held Metformin
- c/w dapagliflozin
- c/w SHAPE BRICK MOLDER Lantus and Aspart - will escalde due to being on steroids
- add ISS Low
DVT Px: LMWH
Full code
IMU
--- NOTE | 2024-05-17 14:38 | EDRN ---
Report given to JOE Acosta in IMU.
[2024-05-17] MEDS: DECADRON 4 MG IV ×2 (15:40→21:09)
[2024-05-17] MEDS: BENADRYL 12.5 MG IV ×2 (15:41→21:09)
--- NOTE | 2024-05-17 15:48 | PTCARENOTE ---
Addendum entered by Alaina Vail RN 05/17/24 18:00:
Patient remains without respiratory distress or chest pain throughout shift. VSS. Patient on RA with SpO2 greater than 92%.
Original Note:
1500: Patient arrived to IMU. Patient slid from stretcher to bed. Patient AOx3. VSS. Patient on RA with SpO2 greater than 92%. IVF started per order. Call bateman within reach, bed in lowest position, and wheels locked.
[2024-05-17] MEDS: NOVOLOG FLEXPEN-LOW RESISTANCE SC (16:54)
[2024-05-17] MEDS: NOVOLOG FLEXPEN 5 UNITS SC (16:55)
[2024-05-17] MEDS: LIPITOR 40 MG PO (17:00)
[2024-05-17] MEDS: LOVENOX 40 MG SC (17:00)
[2024-05-17 17:04] LABS: Glucose - Point of Care 132 mg/dl (70-99)
--- NOTE | 2024-05-17 18:16 | PTCARENOTE ---
Orthostatic VS completed with patient. Sitting BP was 87/70. Standing BP was 77/60. Patient asymptomatic at this time. Care ongoing.
[2024-05-17] MEDS: BRILINTA 90 MG PO (21:08)
[2024-05-17] MEDS: LANTUS 0.15 UNITS SC (21:18)
[2024-05-17 21:28] LABS: Glucose - Point of Care 154 mg/dl (70-99)
[2024-05-18] VITALS (8 sets, daily range): BP systolic 91–107; BP diastolic 67–89; BMI 23.4
--- NOTE | 2024-05-18 00:03 | PTCARENOTE ---
Caring for patient overnight. aaox3, very pleasant, Family at bedside earlier. All symptoms have subsided from previous reaction. Denies pain or SOB. NSR on monitor. Remains RA, placed on 2LNC at night for desating to 88-89%. IVF running. BPs
running soft, pt stated that is his normal. Pt oob to BR stated he had dizziness for a couples seconds but it subsided, pt stated 'thats good for me.' Will continue to monitor. Pt sleeping, call bateman in reach.
[2024-05-18] MEDS: DECADRON 4 MG IV ×2 (05:03→09:12)
[2024-05-18] MEDS: BENADRYL 12.5 MG IV ×2 (05:03→09:12)
[2024-05-18 05:44] LABS: % Basophils 0.2 % (0-2); % Eosinophils 0.1 % (0-6); % Lymphocytes 3.9 % (20.5-51.1); % Monocytes 3.4 % (1.7-9.3); % Neutrophils 91.4 % (42.2-75.2); Absolute Immature Granulocytes 0.2 10^3/uL (0-0.05); Absolute Lymphocytes 0.7 10^3/uL (1.2-3.4); Absolute Monocytes 0.6 10^3/uL (0.1-0.6); Absolute Neutrophils 17.2 10^3/uL (1.4-6.5); Hematocrit 44.2 % (39.0-52.0); Hemoglobin 15.7 g/dL (13.0-18.0); Mean Corp Hgb Conc. 35.5 g/dL (33.0-37.0); Mean Corpuscular Hgb 31.2 pg (27.0-31.0); Mean Corpuscular Volume 87.7 fL (80.0-94.0); Mean Platelet Volume 11.5 fL (7.4-10.4); Nucleated Red Blood Cells % 0 % (-); Platelet Count 166 10^3/uL (130-400); Red Blood Cell Count 5.04 10^6/uL (4.70-6.10); Red Cell Dist. Width 13.6 % (11.5-14.5); White Blood Cell Count 18.8 10^3/uL (4.8-10.8)
[2024-05-18 07:32] LABS: Blood Urea Nitrogen 29 mg/dl (9-20); Calcium 9.4 mg/dl (8.4-10.2); Carbon Dioxide 22 mmol/L (22-30); Chloride 104 mmol/L (98-107); Estimated Creatinine Clearance 117 ml/min; Glucose 147 mg/dl (70-99); Potassium 5.7 mmol/L (3.5-5.1); Sodium 141 mmol/L (135-145); eGFR > 60.00
[2024-05-18] MEDS: LOW STRENGTH ASPIRIN 81 MG PO (08:26)
[2024-05-18] MEDS: BRILINTA 90 MG PO (08:26)
[2024-05-18] MEDS: FARXIGA 10 MG PO (08:26)
[2024-05-18] MEDS: PEPCID 20 MG IV (08:26)
[2024-05-18 08:36] LABS: Glucose - Point of Care 135 mg/dl (70-99)
[2024-05-18 09:11] LABS: Glycohemoglobin (HgbA1c) 5.2 % (4.0-5.6)
[2024-05-18] MEDS: NOVOLOG FLEXPEN-LOW RESISTANCE SC (09:11)
[2024-05-18] MEDS: NOVOLOG FLEXPEN 5 UNITS SC ×2 (09:12→12:46)
--- NOTE | 2024-05-18 11:54 | CON.CAR ---
Addendum entered and electronically signed by Guillermo Gil MD 05/18/24 14:04:
ECG and troponin unremarkable. No additonal recommendations. Follow up with Dr Hinson as outpatient.
Original Note:
Consultation
Consultation Request
Date/Time Consultation Requested: 05/18/2024
Date/Time Consultation Performed: 05/18/2024
Requesting Provider: Dr. Deng
Performing Provider: Dr. Gil
Reason for Consultation: CAD/allergic reaction
Medical History
-
History of Present Illness:
58-year-old male with history of coronary artery disease/IMI 02/14/2024 culprit RCA which was stented. 02/16/2024 stenting of D1 and ramus., EF was 40%
Patient had outpatient echocardiogram and was given Lumason shortly afterwards he said he had abdominal pain nausea and he felt like his face was burning patient then next remembers being in the emergency department. Patient had become unresponsive
but was still breathing and maintaining a pulse when he was evaluated his initial blood pressure was in the 80s and he was in sinus rhythm initially there was some suspicion it could be a vagal response but when patient regained consciousness his
eyes appeared red and watery and then his torso appeared red also had some shortness of breath and reported to have wheezing above findings raise concern for allergic reaction/anaphylaxis. Given epi prednisone and Benadryl along with nebs with
improvement in symptoms. Patient now feels back to baseline just received some additional Benadryl this morning. No complaints of shortness of breath.
Patient does report that he had some brief chest sensation yesterday which may have been after either administration of epi or related to wheezing. Appeared to improve shortly after he received neb.
Of note echocardiogram which was abbreviated did show some improvement in left ventricular function with estimated ejection fraction 50 to 55% previous echo 02/16/2024 had ejection fraction of 40%.
ECG sinus rhythm with right bundle branch block
Past medical history
Cath 02/14/2024 successful stenting of RCA
Cath 02/16/2024
1. Successful PCI of the 90% lesion in the ostium/proximal margin of D1 ([employer] [place] 2.5 x 15 KELLY, postdilated with a 2.75 NC balloon) with reduction in stenosis to 0%, maintaining TASHA-3 flow.
2. Successful PCI of the 80% proximal ramus lesion ([employer] [place] 2.5 x 18 KELLY) with reduction in stenosis to 0%, maintaining TASHA-3 flow.
3. Unsuccessful PCI of the tandem, 90% lesions of OM 2 due to wire position in a dissection plane.
PMH
IMI and RCA stenting 02/14/2024
Stenting D1 and ramus 02/16/2024
Hypercholesterolemia
Diabetes
Past Medical History
Past Medical History: Other
Social History
Tobacco: Non-Smoker
Family History
Family History: Reviewed & Not Pertinent
Allergies / Home Medications
Allergy/AdvReac Type Severity Reaction Status Date / Time
sulfur hexafluoride Allergy See Verified 05/17/24 15:14
microspheres comments
[From Lumason]
�Medication �Instructions �Recorded �Confirmed �Type
aspirin 81 mg chewable tablet 81 mg PO DAILY #90 tabs 02/16/24 05/17/24 Rx
atorvastatin 40 mg tablet 40 mg PO QPM #90 tabs 02/16/24 05/17/24 Rx
nitroglycerin 0.4 mg sublingual 0.4 mg sublingual [id number] PRN 02/16/24 05/17/24 Rx
tablet chest pain #25 tabs
ticagrelor 90 mg tablet (Brilinta) 90 mg PO BID #180 tabs 02/16/24 05/17/24 Rx
dapagliflozin propanediol 10 mg 10 mg PO DAILY #90 tabs 02/17/24 05/17/24 Rx
tablet
metformin 1,000 mg tablet 1,000 mg PO BID@0800,1700 #60 tabs 02/18/24 05/17/24 Rx
metoprolol succinate 25 mg 25 mg PO DAILY #90 tabs 02/18/24 05/17/24 Rx
tablet,extended release 24 hr
insulin aspart U-100 100 unit/mL 2 unit SC AC Diabetes 05/17/24 05/17/24 History
(3 mL) subcutaneous pen (Novolog
FlexPen U-100 Insulin aspart)
insulin glargine 100 unit/mL (3 13 unit SC HS Diabetes 05/17/24 05/17/24 History
mL) subcutaneous pen (Lantus
Solostar U-100 Insulin)
Review of Systems
-
All other systems: Negative unless noted
Physical Exam
Vital Signs
Temp Pulse Resp BP Pulse Ox
97.7 F 82 17 91/67 94
05/18/24 07:51 05/18/24 08:00 05/18/24 08:00 05/18/24 06:00 05/18/24 08:00
Lab Results
05/18/24 05:13
05/18/24 06:45
Troponin I < 0.012 ng/ml 05/17/24 10:32
Physical Exam
General: Well Developed
HEENT: Normocephalic
Cardiac: Regular Rhythm
GI: Soft and Non Tender
Musculoskeletal: No Clubbing and No Cyanosis
Neuro: Awake and Alert
Impression / Plan
-
Allergic reaction.
-Presentation consistent with allergic reaction to Lumason echo contrast. Patient had received Lumason previously and in retrospect he said he may have had some itching the week after he received it but attributed to his new insulin.
-Patient knows to avoid echo contrast this would be both Lumason and Definity echo contrast
-Patient has received prednisone and Benadryl.
-Continue treatment as directed by hospitalist. Patient has received additional Benadryl today and feels well without symptoms.
.
Coronary artery disease/IMI/RCA stenting/D1 stenting/ramus stenting
-Continue dual antiplatelet therapy
-Improvement in EF based on recent echo
.
Brief chest sensation yesterday. May have been related to some of his pulmonary issues and wheezing yesterday. May be multifactorial. ECG without changes. Troponin was unremarkable
-Will check follow-up troponin and ECG
.
Data Reviewed
-
EKG: Report Reviewed by me
Radiology: Report Reviewed by me
Medical Tests (Nuc Med, Echo etc): Report Reviewed by me
Labs: Labs Reviewed by me
[2024-05-18 12:05] LABS: Glucose - Point of Care 156 mg/dl (70-99)
[2024-05-18] MEDS: LOKELMA 10 GRAM PO (12:08)
--- NOTE | 2024-05-18 12:14 | PTCARENOTE ---
Patient AOX3. VSS. Patient on RA with Spo2 greater than 92%. NSR with BBB on tele. Assist x1 when ambulating in room. Dr. Colón made aware of patients potassium of 5.7 this AM. Lokelma given per order. Call bateman within reach, bed in lowest
position, and wheels locked.
[2024-05-18] MEDS: NOVOLOG FLEXPEN-LOW RESISTANCE 1 UNITS SC (12:46)
[2024-05-18 13:24] LABS: Troponin I < 0.012 ng/ml
--- NOTE | 2024-05-18 14:40 | W.DS.TRANS ---
DC Summary - Sebd Teacher
-
Discharge Instructions:
Discharge Diagnosis/Procedures Allergic reaction
Diet 2 Gram Sodium
Blood Work BMP 05/24/2024
Instructions:
Stand-Alone Forms:
Changes to Home Medications: No
Discharge Medications:
DC Medications w/original date entered in [employer]
aspirin 81 mg chewable tablet 81 mg PO DAILY #90 tabs 02/16/24
atorvastatin 40 mg tablet 40 mg PO QPM #90 tabs 02/16/24
nitroglycerin 0.4 mg sublingual tablet 0.4 mg sublingual [id number] PRN chest pain #25 tabs 02/16/24
ticagrelor 90 mg tablet (Brilinta) 90 mg PO BID #180 tabs 02/16/24
dapagliflozin propanediol 10 mg tablet 10 mg PO DAILY #90 tabs 02/17/24
metformin 1,000 mg tablet 1,000 mg PO BID@0800,1700 #60 tabs 02/18/24
metoprolol succinate 25 mg tablet,extended release 24 hr 25 mg PO DAILY #90 tabs 02/18/24
insulin aspart U-100 100 unit/mL (3 mL) subcutaneous pen (Novolog FlexPen U-100 Insulin aspart) 2 unit SC AC Diabetes 05/17/24
insulin glargine 100 unit/mL (3 mL) subcutaneous pen (Lantus Solostar U-100 Insulin) 13 unit SC HS Diabetes 05/17/24
Home Medication Changes
Pending Results: No
--- NOTE | 2024-05-18 15:24 | CM ---
Patient with Hx cardiac echo with reaction when receiving IV contrast. Room air. Receiving IV Benadryl.
Met with patient and Belk[facility];
the patient resides with his in a 2 story house.
The patient has been independent in ADLs and ambulation.
He is active, works, drives.
The patient has no DME.
Prior VN with home IV Infusion about 6 yrs ago- can't remember provider.
PCP - Neil Aguilar
Pharmacy - [facility] [address], [place]
The patient says he feels ready for d/c today. His will provide a ride home.
No CM d/c needs identified.
Plan home today.
== END 2024-05-18 15:28 | disposition home or self-care (01) | DRG 916 ==
LOC: IMU 13:10
PROVIDERS: Internal Medicine; ADMITTING PHYSICIAN Internal Medicine; ATTENDING PHYSICIAN Internal Medicine; EMERGENCY PHYSICIAN Emergency Medicine; OTHER PHYSICIAN Internal Medicine Cardiovascular Disease
DX: T88.6XXA Anaphylactic reaction due to adverse effect of correct drug or medicament properly administered, initial encounter (principal); Z79.4 Long term (current) use of insulin; I25.10 Atherosclerotic heart disease of native coronary artery without angina pectoris; E78.00 Pure hypercholesterolemia, unspecified; R41.82 Altered mental status, unspecified; Z79.84 Long term (current) use of oral hypoglycemic drugs; I45.10 Unspecified right bundle-branch block; E11.9 Type 2 diabetes mellitus without complications; Z79.82 Long term (current) use of aspirin; Z79.02 Long term (current) use of antithrombotics/antiplatelets; I25.5 Ischemic cardiomyopathy; E87.5 Hyperkalemia; Y84.8 Other medical procedures as the cause of abnormal reaction of the patient, or of later complication, without mention of misadventure at the time of the procedure
CPT/HCPCS: 93308; 71045; 80048; 80053; 82962; 83036; 84484; 85025; 93005; 93321; 93325; 96361; 96372; 96374; 96375; 99291; Q9950

== ENCOUNTER → 2024-08-26 08:32 | Outpatient (REF) | payer BC, SELFPAY | LOC: PAVMRI 08:32 | PROVIDERS: ATTENDING PHYSICIAN Internal Medicine Cardiovascular Disease; FAMILY PHYSICIAN Physician Assistant Medical | DX: I25.10 Atherosclerotic heart disease of native coronary artery without angina pectoris (principal); I25.5 Ischemic cardiomyopathy; T50.8X1A Poisoning by diagnostic agents, accidental (unintentional), initial encounter; R55 Syncope and collapse | CPT/HCPCS: 75561; 75565; A9585 ==

== ENCOUNTER 2024-12-20 08:49 | Day surgery (SDC) | payer BC, SELFPAY ==
[2024-12-09 09:13] VITALS: BMI 21.3
[2024-12-09 09:41] LABS: Hematocrit 41.1 % (39.0-52.0); Hemoglobin 14.0 g/dL (13.0-18.0); Mean Corp Hgb Conc. 34.1 g/dL (33.0-37.0); Mean Corpuscular Volume 91.3 fL (80.0-94.0); Nucleated Red Blood Cells % 0 % (-); Platelet Count 175 10^3/uL (130-400); Red Cell Dist. Width 13.2 % (11.5-14.5)
[2024-12-09 10:55] LABS: ALT (SGPT) 28 U/L (0-50); AST (SGOT) 35 U/L (17-59); Albumin 4.5 g/dl (3.5-5.0); Alkaline Phosphatase 67 U/L (38-126); Blood Urea Nitrogen 11 mg/dl (9-20); Calcium 9.5 mg/dl (8.4-10.2); Carbon Dioxide 27 mmol/L (22-30); Chloride 106 mmol/L (98-107); Estimated Creatinine Clearance > 125 ml/min; Glucose 107 mg/dl (70-99); Potassium 4.1 mmol/L (3.5-5.1); Sodium 140 mmol/L (135-145); Total Protein 7.1 g/dl (6.3-8.2); eGFR > 60.00
[2024-12-20] VITALS (19 sets, daily range): BP systolic 87–138; BP diastolic 61–78; BMI 21.4
--- NOTE | 2024-12-20 07:39 | W.ICD.CONTRA ---
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
-
History of [place]?: Yes
LV Function
Left ventricular function study result?: Ejection Fraction </= 35%
ACEI/ARB/ARNI
Patient already on ACEI/ARB/ARNI: Yes
Beta-Gala
Patient already on Beta Gala: Yes
[2024-12-20 09:42] LABS: Glucose - Point of Care 100 mg/dl (70-99)
--- NOTE | 2024-12-20 13:01 | ITS.CL.ICD ---
[employer] - ICD
Implantable Cardioverter Defibrillator
Procedure Report:
Single Chamber Implantable Cardioverter Defibrillator (ICD) Placement:
Mr. Teran is a very pleasant 59 years old gentleman with CAD, coronary artery disease/IMI 02/14/2024 culprit RCA which was stented with staged PCI to D1 and ramus on 02/16/2024. There was dissection noted that was stented. EF was 40% that had
improved and the ICD was not done. He now presented with non-sustained VT with large scar in the inferior and right ventricular area. The plan is to do EP study and if positive to proceed with ICD placement.
Indications: Secondary prevention of sudden cardiac
Date of the Procedure: 12/20/2024
Pre-Operative Diagnosis: Ischemic cardiomyopathy with large scar and ventricular tachycardia
Post-Operative Diagnosis: : Ischemic cardiomyopathy with large scar and ventricular tachycardia
Procedure Performed: SINGLE CHAMBER IMPLANTABLE CARDIOVERRTER DEFIBRILLATOR IMPLANTATION
Performing physician:
Toi Mane MD
Anesthesia:
See anesthesia records
Detailed Description of the Procedure:
The patient was identified using hospital identification and informed consent obtained for the procedure. The risks were explained including, but not limited to: Bleeding, infection, arrhythmia, stroke, vascular/cardiac/lung puncture, surgery,
pacemaker dependency/device malfunction. All questions were answered.
The patient was brought to the electrophysiology laboratory in stable condition in fasting state. Continuous electrocardiographic and hemodynamic monitoring was initiated. The initial rhythm was normal sinus.
The procedure site was meticulously prepared with surgical scrub and allowed to dry with no pooling. Sterile draping was applied to cover the procedure site. The image intensifier was draped with sterile bag and positioned over the patient.
The left infra-clavicular region was prepped and draped in the usual sterile fashion. Local anesthesia was administered subcutaneously using 1% lidocaine / epinephrine. The left cephalic vein cut down was performed, and vascular sheath was
introduced for lead access. The guide wire was advanced into the inferior vena cava.
The lead was placed in the RV cavity to study the VT induction but the catheter induced ectopy was severe. Either there was scar where the threshold was too high to capture or the myocardium was too irritable to do a full EP study. The VT was quite
wide and associated with hypotension. Decision was made to proceed with ICD placement.
The right ventricular defibrillator lead was advanced into the RV cavity and secured in RV apical septal position with an active fixation technique. The sensing was poor. The lead had regan moved multiple times to find a location that is not having
VT or can give adequate sensing.� Finally an acceptable location was found and the ICD lead was placed.
There was excellent sensing, pacing, and impedance from the leads, with no diaphragmatic stimulation at 10 V output.�Bovie cautery, antibiotics, and fluoroscopy were used.
The sheath was withdrawn, and the thresholds remained acceptable. The lead was secured in position at the venous entry site with 2-0 Ethibond. A pocket was fashioned contiguous to the incision. The electrode terminals were connected to the pulse
generator, which was placed into the pocket. The wound was irrigated thoroughly with antibiotic solution and closed in 3 layers using 2-0, V loc sutures followed by two layers of 4-0 Monocryl sutures. Steri-Strips and a bandage were applied
externally.�
Procedure End:
The procedure was tolerated well. A pressure bandage was applied to the incision area to be removed in a day.
Estimated Blood loss:
5 cc
Specimens Removed:
No cultures and no specimens were obtained. No intraoperative pathology was identified.
Urine output:
None
Packs / Drains/ Tubes:
None
Instrument / Sponge Count Correct:
Yes
Fluoro Time: (EP study and ICD)
4.8 min / 18.46mGy
Complications of the Procedure:
None
Condition of Patient at Time of Transfer:
Hemodynamically stable with no neurological or vascular compromise.
Device information:�
Generator: [employer]; Model: [id number]; Serial # [id number]�
RV Lead: Stupiltronic; Model: [id number]-[id number]; Serial # [id number]
Measured data in the RV lead was sensing of 5.1 mV, impedance of 551ohms and threshold of 0.5 V at 0.4ms�
PROGRAMMING PARAMETERS:�
Franco parameter settings were VVI 50 bpm. �
����������� Rate Adaptive A-V Interval: Off
Tachy parameter settings:
����������� SVT discrimination: On
����������� AF/AFl: Off
����������� Wavelet: On
����������� SVT limit: 260 msec
����������� VT zone:
Slow VT: 150-170 bpm --> Monitor
����������������������� VF/Fast VT: >188 bpm � ATP while charging then Shock� x6
�����������
Summary:
Successful implantation of MRI compatible single chamber Medtronic ICD
Results/Recommendations:
-Please follow up CXR�
1. Please provide patient with adequate pain control�
Instructions to be given to patient:�
- Please follow up with [facility] at [address] [place] [address] ([phone]) to get your wound checked within 7 days of your discharge.
- Do not wet incision site until after it is evaluated at cardiology clinic. No showers until then. Sponge baths are OK.�
- Allow 'steri strips' to fall off on their own�
- Do not lift left elbow above shoulder, particularly with sudden jerking movements, for 1 month�
- Do not lift anything weighing more than 5 pounds with the left arm for 1 month�
- If you notice any fevers, shortness of breath, lightheadedness, chest pain, or worsening swelling in the wound site, please contact the arrhythmia clinic, contact your aluminum pourer, or present to the hospital for evaluation.�
Toi Mane MD
Electrophysiology
[2024-12-20 13:14] LABS: Glucose - Point of Care 87 mg/dl (70-99)
--- NOTE | 2024-12-20 13:33 | PTCARENOTE ---
Rec'd pt from EP lab. Tele- SR w/ BBBC. L anterior chest wall w/ steri strips, Aquacel, and pressure dsg c/d/i. No bleeding/hematoma noted. L arm immobilizer on. Activity restrictions reviewed w/ pt and verbalizes understanding. Pt w/ 07/02 surgical
site pain at L chest wall and meets pt acceptable level. Offered Tylenol and pt refuses. Currently in bed; call fransico w/in reach.
--- NOTE | 2024-12-20 15:20 | CM ---
Chart reviewed. Patient is independent of ADLS, lives with his in a [address], 2 [facility], 0 DME. Plan is for the patient to return home. CM to follow
[2024-12-20] MEDS: TOPROL XL 25 MG PO (17:14)
[2024-12-20] MEDS: ZETIA 10 MG PO (17:14)
[2024-12-20] MEDS: LIPITOR 80 MG PO (17:14)
[2024-12-20 17:47] LABS: Glucose - Point of Care 124 mg/dl (70-99)
[2024-12-20] MEDS: BRILINTA 90 MG PO (19:53)
[2024-12-20] MEDS: ANCEF 5 IV (19:54)
[2024-12-20] MEDS: ENTRESTO 24 MG/26 MG PO (20:22)
--- NOTE | 2024-12-20 22:04 | PTCARENOTE ---
Received pt @ change of shift. AAOx3, BP 87/70, other VSS. NSR with BBB on monitor. ICD site intact-- pressure dressing in place. 07/02 pain, but states 'no need for pain meds, yet.' With low BP, informed CV PA, Alvaro Peralta-- advised to hold
Sacubitril 24/Valsartan 26. Discussed plan of care with pt for evening. Pt verbalizes understanding. Call bateman within reach.
[2024-12-20 22:35] LABS: Glucose - Point of Care 209 mg/dl (70-99)
[2024-12-21 03:32] VITALS: BP 99/73
[2024-12-21] MEDS: ANCEF 5 IV (03:51)
[2024-12-21 04:37] LABS: Hematocrit 36.9 % (39.0-52.0); Hemoglobin 12.8 g/dL (13.0-18.0); Mean Corp Hgb Conc. 34.7 g/dL (33.0-37.0); Mean Corpuscular Volume 90.9 fL (80.0-94.0); Platelet Count 165 10^3/uL (130-400); Red Cell Dist. Width 13.4 % (11.5-14.5)
[2024-12-21 04:59] LABS: Blood Urea Nitrogen 16 mg/dl (9-20); Calcium 9.3 mg/dl (8.4-10.2); Carbon Dioxide 23 mmol/L (22-30); Chloride 109 mmol/L (98-107); Estimated Creatinine Clearance > 125 ml/min; Glucose 105 mg/dl (70-99); Potassium 4.2 mmol/L (3.5-5.1); Sodium 140 mmol/L (135-145); eGFR > 60.00
[2024-12-21 08:13] VITALS: BP 101/74
[2024-12-21 08:17] VITALS: BMI 21.6
[2024-12-21 08:17] LABS: Glucose - Point of Care 100 mg/dl (70-99)
[2024-12-21] MEDS: LOW STRENGTH ASPIRIN 81 MG PO (08:23)
[2024-12-21] MEDS: FARXIGA 10 MG PO (08:23)
[2024-12-21] MEDS: ENTRESTO 24 MG/26 MG 1 TAB PO (08:23)
[2024-12-21] MEDS: BRILINTA 90 MG PO (08:23)
[2024-12-21 09:03] LABS: Glycohemoglobin (HgbA1c) 5.4 % (4.0-5.6)
--- NOTE | 2024-12-21 09:46 | W.PN.CD ---
Today's Communication / Plan
-
- ECHO today'
- ICD interrogation
- Discharge
Impression / Plan
-
59 yrs old man with with CAD, coronary artery disease/IMI 02/14/2024 culprit RCA which was stented with staged PCI to D1 and ramus on 02/16/2024. There was dissection noted that was stented. EF was 40% that had improved and the ICD was not done. He
now presented with non-sustained VT with large scar in the inferior and right ventricular area s/p EP study and ICD placement for VT
VT
- Ischemic cardiomyopathy
- Large scar on the inferior wall and most of the right ventricle
- s/p single chamber ICD - Medtronic 12/20/24
- Increase Metoprolol as outpatient to suppress the ventricular ectopy - currently at 25 mg QPM - limited due to hypotension - Also on Midodrine.
- Based on the burden of PVC and NSVT, on the device, can consider addition of Amiodarone.
ICD
- CXR is tj. No PTX
- Pressure dressing removed
- No bleeding or hematoma
- Device interrogation today - given large scarin the RV and high VT burden noted in lab.
Coronary artery disease/IMI/RCA stenting/D1 stenting/ramus stenting
-Continue dual antiplatelet therapy
-ECHO today to assess the LV functions.
Disposition
-Discharge home today/
Physical Exam
Vital Signs/Labs
Vital Signs
Temp Pulse Resp BP Pulse Ox
97.8 F 72 16 101/74 98
12/21/24 08:11 12/21/24 08:30 12/21/24 08:11 12/21/24 08:13 12/21/24 08:11
12/20/24 12/21/24 12/22/24
06:59 06:59 06:59
Actual Weight 86.183 kg 86.8 kg
12/21/24 03:58
12/21/24 03:58
Physical Exam
Constitutional: No acute distress and Comfortable
EENT: Anicteric and Moist mucous membranes
Cardiovascular: Rhythm & rate is regular, Pedal edema is absent and JVD pressure is normal
Respiratory: Respiratory effort normal, Lungs clear to auscul., Wheeze Absent and Crackles Absent
GI: Soft, Distention absent and Normal bowel sounds
Neuro/Psych: Alert, Oriented and AO x 3
Data Reviewed
-
Date of Service: December 21, 2024
Medical Decision Making: Reviewed Test Results, Test Interpretation and Review of Case with other Provider
EKG: Tracing Personally Visualized and interpreted
Echo: Tracing Personally Visualized and interpreted
Labs: Labs Reviewed by me
Old Records: Reviewed
--- NOTE | 2024-12-21 10:38 | W.DS.TRANS ---
DC Summary - [employer]
-
Discharge Instructions:
Discharge Diagnosis/Procedures ICD implant
Diet Low Cholesterol
Driving Restrictions No driving for 1 week
Bathing Restrictions OK to Shower
Instructions:
Stand-Alone Forms: DC Inst - Implanted Device
Changes to Home Medications: No
Discharge Medications:
DC Medications w/original date entered in [employer]
aspirin 81 mg chewable tablet 81 mg PO DAILY #90 tabs 02/16/24
nitroglycerin 0.4 mg sublingual tablet 0.4 mg sublingual [id number] PRN chest pain #25 tabs 02/16/24
ticagrelor 90 mg tablet (Brilinta) 90 mg PO BID #180 tabs 02/16/24
dapagliflozin propanediol 10 mg tablet 10 mg PO DAILY #90 tabs 02/17/24
metformin 1,000 mg tablet 1,000 mg PO BID@0800,1700 #60 tabs 02/18/24
atorvastatin 80 mg tablet 80 mg PO QPM 12/20/24
ezetimibe 10 mg tablet 10 mg PO QPM 12/20/24
metoprolol succinate 25 mg tablet,extended release 24 hr 25 mg PO QPM 12/20/24
midodrine 5 mg tablet 5 mg PO BID 12/20/24
sacubitril 24 mg-valsartan 26 mg tablet (Entresto) 1 tab PO BID 12/20/24
semaglutide 0.25 mg or 0.5 mg (2 mg/3 mL) subcutaneous pen injector (Ozempic) 0.25 mg SC QWEEK 12/20/24
Home Medication Changes
Pending Results: No
[2024-12-21 11:21] VITALS: BP 92/70
--- NOTE | 2024-12-21 11:47 | PTCARENOTE ---
IV and tele removed. Discharge instructions reviewed w/ pt and spouse and verbalizes understanding. Belongings collected and sent home w/ pt. Escorted via WC and staff assist to home.
== END 2024-12-21 11:48 | disposition home or self-care (01) ==
LOC: CATH 08:49
PROVIDERS: Nurse Practitioner; ATTENDING PHYSICIAN Internal Medicine Cardiovascular Disease; FAMILY PHYSICIAN Family Medicine; REFERRING PHYSICIAN Internal Medicine Cardiovascular Disease
DX: I47.20 Ventricular tachycardia, unspecified (principal); I25.5 Ischemic cardiomyopathy; I25.10 Atherosclerotic heart disease of native coronary artery without angina pectoris; Z95.5 Presence of coronary angioplasty implant and graft; I25.2 Old myocardial infarction; Z79.82 Long term (current) use of aspirin; Z79.84 Long term (current) use of oral hypoglycemic drugs; Z79.85 Long-term (current) use of injectable non-insulin antidiabetic drugs; Z79.899 Other long term (current) drug therapy
CPT/HCPCS: 33249; 93308; 93321; 93325; 36415; 71045; 80048; 80053; 82962; 83036; 85025; 85027; 93005; C1722; C1766; C1777